=== PATIENT | female | born 1955 | race Caucasian/White ===

== ENCOUNTER 2020-01-02 08:42 | Outpatient (CLI) | payer BC, SELFPAY ==
[2020-01-02 09:12] LABS: Add Urine Microscopic? YES; Appearance Urine Clear (Clear); Bilirubin Urine Negative (Negative); Blood Urine Negative (Negative); Color Urine Yellow (Yellow); Glucose Urine UA Negative (Negative); Ketones Urine Negative (Negative); Leukocyte Esterase Ur Trace (Negative); Nitrate Urine Negative (Negative); Protein Urine Negative (Negative); Urobilinogen Urine 0.2 mg/dL (0.2-1.0); pH Urine 6.5 (5.0-8.0)
[2020-01-02 09:17] LABS: RBC Urine 0-2 /hpf (0-2); Squamous Epithelial Cell Urine Few /hpf (Few)
[2020-01-02 09:18] LABS: Bacteria Urine 1+ /hpf; Mucus Urine Few /lpf
[2020-01-02 09:22] LABS: Hemoglobin A1C 6.4 % (<5.7)
[2020-01-02 10:07] LABS: Alanine Aminotransferase 29 U/L (14-59); Albumin Level 4.1 g/dL (3.4-5.0); Alkaline Phosphatase 60 U/L (46-116); Anion Gap 14.8 mmol/L (7-16); Aspartate Amino Transferase 19 U/L (15-37); Bilirubin,Total 0.5 mg/dL (0.00-1.00); Blood Urea Nitrogen 18 mg/dL (7-18); Carbon Dioxide 27 mmol/L (21-32); Chloride 104 mmol/L (98-108); Cholesterol 147 mg/dL (0-200); Creatine Kinase 76 U/L (26-192); Estimated Glomerular Filt Rate > 60; Glucose 94 mg/dL (70-99); HDL Direct 61 mg/dL (40-60); LDL Cholesterol Calculated 60 mg/dL (<130); Osmolality Calculated 293 mOsm/kg (285-295); Potassium 4.8 mmol/L (3.5-5.1); Sodium 141 mmol/L (136-145); Total Protein 6.9 g/dL (6.4-8.2); Triglycerides 130 mg/dL (0-150)
[2020-01-04 10:52] LABS: Vitamin D 25 Hydroxy 40 ng/mL (30-100)
== END 2020-01-02 08:43 | disposition home or self-care (01) ==
LOC: CHSLAB 08:44
PROVIDERS: PCP Internal Medicine; Visit Provider Internal Medicine
DX: R73.01 Impaired fasting glucose (principal); E78.2 Mixed hyperlipidemia; I10 Essential (primary) hypertension; M81.0 Age-related osteoporosis without current pathological fracture
CPT/HCPCS: 36415; 80053; 80061; 81001; 82306; 82550; 83036

== ENCOUNTER 2020-05-18 09:59 | Emergency (ER) | payer BC, SELFPAY ==
--- NOTE | ~2020-05-18 | CT_ITS ---
EXAMINATION: CT brain wo con DATE: 05/18/2020 11:09 INDICATION: Dizziness with history of carotid artery stenosis. TECHNIQUE: Computed tomography (CT) of the head was performed without intravenous contrast. Sagittal and coronal reconstructions were performed. The mA was adjusted according to patient size. Iterative reconstruction technique was employed. The dose-length product was 605.33 mGy-cm. COMPARISON: None FINDINGS: No acute intracranial hemorrhage, acute infarction or abnormal extra axial fluid collection. There is mild scattered white matter hypoattenuation consistent with chronic small vessel ischemic disease. Ventricles are normal and symmetric. No mass/mass effect. The orbits, paranasal sinuses and mastoid a ir cells are normal. IMPRESSION: 1. No acute intracranial process. Reviewed, dictated and finalized at location A.
[2020-05-18 10:00] VITALS: BP 186/78; PULSE 55; RESP 18; TEMP 36.7; O2SAT 96
--- NOTE | 2020-05-18 10:39 | ECG_ITS ---
Measurements Intervals [place] Rate: 56 P: 45 TN: 228 QRS: 9 QRSD: 104 T: 40 QT: 412 QTc: 400 Interpretive Statements SINUS BRADYCARDIA WITH FIRST DEGREE AV BLOCK DELAYED PRECORDIAL R/S TRANSITION BASELINE ARTIFACT- I, II, AVR, AVL, AVF ABNORMAL ECG Electronically Signed On 05-18-2020 11:13:25 CDT by Adryan Pritchett D.O.
--- NOTE | 2020-05-18 10:39 | ED.DIZZY ---
HPI - Dizziness General Chief Complaint: Dizziness Stated Complaint: dizzy spells Time Seen by Provider: 05/18/20 10:23 Source: patient History of Present Illness HPI Narrative: 65-year-old female patient arrives to the ER ambulatory with chief complaints of experiencing dizziness since last night. The patient states that she was doing her dishes and suddenly started feeling dizzy where she felt that the room was spinning around her. She states that she had to sit down to feel better. She did get nauseated but did not have any emesis. She did experience some popping of the ears off and on. She denies any associated diaphoresis, headache, chest pain, shortness of breath or feeling of passing out. The patient states that she has been on a diet recently where she is eating sensible and has realized that she does not drink enough fluids. She did have 1 beer last night and was not able to finish it. The patient states that she slept reasonably well but this morning felt unsteady on her feet again with similar symptoms of dizziness that she experienced last night. Again there are no other associated symptoms this morning except for the fact that patient is not feeling steady on her feet. Patient denies ever having experienced similar symptoms. She denies any associated visual or auditory problems. Patient states that she has had a history of hypertension and did have a mild heart attack in the past but denies having had any stents placed in our any known history of coronary artery stenosis. She does admit to having carotid artery stenosis which she was told is at 50%. She has no prior history of stroke symptoms. She denies any diabetes. She denies being a smoker for the last 7 years. Related Data Home Medications Medication Instructions Recorded Confirmed [employer] wort 300 mg capsule 300 mg PO DAILY 01/12/20 05/18/20 ascorbic acid (vitamin C) 500 mg 500 mg PO BID 01/12/20 05/18/20 tablet aspirin 81 mg tablet,delayed 81 mg PO DAILY 01/12/20 05/18/20 release calcium carb-Ca gluc 500 mg 500 tablet PO DAILY 01/12/20 05/18/20 calcium-magnesium ox-Mg gluc 250 mg tablet carvedilol 6.25 mg tablet 6.25 mg PO Q12H 01/12/20 05/18/20 cholecalciferol (vitamin D3) 100 5,000 unit PO DAILY tablet 01/12/20 05/18/20 mcg (4,000 unit) tablet cyanocobalamin (vitamin B-12) 500 500 mcg PO DAILY 01/12/20 05/18/20 mcg tablet magnesium oxide 400 mg PO BID 01/12/20 05/18/20 multivitamin 1 tablet PO DAILY 01/12/20 05/18/20 pravastatin 10 mg tablet 10 mg PO DAILY 01/12/20 05/18/20 Allergies Allergy/AdvReac Type Severity Reaction Status Date / Time No Known Allergies Allergy Verified 01/16/20 14:59 Review of Systems Review of Systems: All systems reviewed & are unremarkable except as noted in HPI and below Constitutional: Constitutional: Reports as per HPI and Reports fatigue Eyes: Eyes: Reports no additional eye complaints ENT: Reports system reviewed and no additional complaints, except as documented Cardiovascular: Cardiovascular: Reports as per HPI, Reports no additional cardiovascular complaints, Denies chest pain, Denies rapid heart rate, Denies radiating jaw, neck or arm pain and Denies slow heart rate Respiratory: Respiratory: Reports no additional respiratory complaints, Denies chest congestion, Denies cough, Denies dyspnea and Denies wheezing Gastrointestinal: Gastrointestinal: Denies no additional gastrointestinal complaints, Denies abdominal pain, Denies diarrhea, Reports nausea and Denies vomiting Genitourinary: Genitourinary: Reports no additional female genitourinary complaints Musculoskeletal: Musculoskeletal: Reports no additional musculoskeletal complaints Integumentary/Breasts: Skin/Breast: Reports system reviewed and no additional complaints, except as docu Endocrine: Endocrine: Reports no additional endocrine complaints Hematologic/Lymphatic: Hematologic/Lymphatic: Reports no additional hematologic/lymp
[2020-05-18 10:48] VITALS: BP 134/57; PULSE 61
[2020-05-18 10:50] VITALS: BP 147/73; PULSE 65
--- NOTE | 2020-05-18 11:00 | PC.NURSE ---
report to shanon Tidwell
[2020-05-18 11:02] LABS: Basophils Absolute Auto 0.02 K/mm3 (0.00-0.10); Basophils Percent Auto 0.4 % (0.0-1.0); Eosinophils Absolute Auto 0.15 K/mm3 (0.02-0.50); Eosinophils Percent Auto 2.8 % (1.0-6.0); Hematocrit 41.8 % (35.0-49.0); Hemoglobin 13.6 g/dL (12.0-15.0); Immature Granulocyte Absolute 0.01 K/mm3 (0.00-0.00); Immature Granulocyte Percent A 0.2 % (0.0-0.0); Lymphocytes Absolute Auto 1.55 K/mm3 (1.10-4.50); Lymphocytes Percent Auto 29.4 % (18.0-42.0); Mean Corpuscular HGB Conc 32.5 g/dL (32.0-36.0); Mean Corpuscular Hemoglobin 29.8 pg (27.0-31.0); Mean Corpuscular Volume 91.7 fL (78.0-102.0); Mean Platelet Volume 11.7 fl (9.2-11.8); Monocytes Absolute Auto 0.65 K/mm3 (0.10-0.90); Monocytes Percent Auto 12.3 % (2.0-11.0); Neutrophils Absolute Auto 2.9 K/mm3 (1.7-7.2); Neutrophils Percent Auto 54.9 % (50.0-70.0); Platelet Count Result 164 K/mm3 (150-420); Red Blood Count 4.56 M/mm3 (4.20-5.40); Red Cell Distribution Width 13.2 % (11.6-14.4); White Blood Count 5.3 K/mm3 (4.8-10.8)
[2020-05-18 11:04] LABS: Appearance Urine Clear (Clear); Bilirubin Urine Negative (Negative); Color Urine Yellow (Yellow); Glucose Urine UA Negative (Negative); Ketones Urine Negative (Negative); Leukocyte Esterase Ur Negative (Negative); Nitrate Urine Negative (Negative); Protein Urine Negative (Negative); Specific Grav Ur <= 1.005 (1.010-1.020); Urobilinogen Urine 0.2 mg/dL (0.2-1.0)
[2020-05-18 11:11] LABS: Add Urine Microscopic? YES; Bacteria Urine None seen /hpf; Blood Urine Trace-Intact (Negative)
[2020-05-18 11:12] LABS: RBC Urine 0-2 /hpf (0-2); Squamous Epithelial Cell Urine None seen /hpf (Few); WBC Urine 0-3 /hpf (0-3)
[2020-05-18 11:26] LABS: Blood Urea Nitrogen 20 mg/dL (7-18); Calcium 9.3 mg/dL (8.5-10.1); Carbon Dioxide 30 mmol/L (21-32); Creatine Kinase 98 U/L (26-192); Estimated Glomerular Filt Rate > 60; Glucose 84 mg/dL (70-99); Magnesium 1.8 mg/dL (1.8-2.4)
[2020-05-18 11:36] LABS: Troponin I < 0.02 ng/mL (0.00-0.056)
[2020-05-18 12:07] LABS: Anion Gap 11.5 mmol/L (7-16); Chloride 101 mmol/L (98-108); Osmolality Calculated 287 mOsm/kg (285-295); Potassium 4.5 mmol/L (3.5-5.1); Sodium 138 mmol/L (136-145)
[2020-05-18] MEDS: SODIUM CHLORIDE 0.9% IV 1,000 ML 999 ML IV CONT (12:14)
[2020-05-18 13:28] VITALS: BP 155/49; PULSE 61; RESP 20; O2SAT 99
== END 2020-05-18 13:28 | disposition home or self-care (01) ==
PROVIDERS: Emergency Provider Emergency Medicine; PCP Internal Medicine
DX: R42 Dizziness and giddiness (principal); I10 Essential (primary) hypertension; E86.0 Dehydration
CPT/HCPCS: 36415; 70450; 80048; 81001; 82550; 82553; 83735; 84484; 85025; 93005; 99283; 99284; 99285; J7030

== ENCOUNTER 2020-05-19 04:57 | Emergency (ER) | payer BC, SELFPAY ==
[2020-05-19 05:00] VITALS: BP 180/92; PULSE 72; RESP 16; TEMP 36.2; O2SAT 98
[2020-05-19] MEDS: cloNIDine HCL 0.1 MG TABLET PO (05:28)
--- NOTE | 2020-05-19 05:35 | ED.DIZZY ---
HPI - Dizziness General Chief Complaint: Dizziness Stated Complaint: dizzy Time Seen by Provider: 05/19/20 05:35 History of Present Illness HPI Narrative: 65-year-old female patient is returning again with dizziness padded this patient was seen yesterday with same complaints of dizziness that seemed to get worse when she stood up or try to ambulate. The patient had will unremarkable physical exam. A complete workup was done including electrocardiogram and the CT scan of the brain. The patient did have full the lab work done as well. All the parameters were within normal limits. The patient was given a L of fluids intravenously in the ER and she felt better and was discharged. The patient states that she felt fine during the day and was the evening got little bit more dizzy. She states that this morning when she got up to get ready to go to her work she felt so unsteady on her feet and again had another episode of dizziness. The patient describes the dizziness as the room spinning. She states that she is unable to look down which exaggerates the dizziness. She has mild nausea but no associated vomiting. She denies breaking out in a cold sweat. She denies any current headache. She denies any trouble with her speech. The patient states that if she holds onto things she is able to walk but feels a little unsteady. The patient denies any visual problems. Related Data Home Medications Medication Instructions Recorded Confirmed [employer]'s wort 300 mg capsule 300 mg PO DAILY 01/12/20 05/19/20 ascorbic acid (vitamin C) 500 mg 500 mg PO BID 01/12/20 05/19/20 tablet aspirin 81 mg tablet,delayed 81 mg PO DAILY 01/12/20 05/19/20 release calcium carb-Ca gluc 500 mg 500 tablet PO DAILY 01/12/20 05/19/20 calcium-magnesium ox-Mg gluc 250 mg tablet carvedilol 6.25 mg tablet 6.25 mg PO Q12H 01/12/20 05/19/20 cholecalciferol (vitamin D3) 100 5,000 unit PO DAILY tablet 01/12/20 05/19/20 mcg (4,000 unit) tablet cyanocobalamin (vitamin B-12) 500 500 mcg PO DAILY 01/12/20 05/19/20 mcg tablet magnesium oxide 400 mg PO BID 01/12/20 05/19/20 multivitamin 1 tablet PO DAILY 01/12/20 05/19/20 pravastatin 10 mg tablet 10 mg PO DAILY 01/12/20 05/19/20 Allergies Allergy/AdvReac Type Severity Reaction Status Date / Time No Known Allergies Allergy Verified 01/16/20 14:59 Review of Systems Review of Systems: All systems reviewed & are unremarkable except as noted in HPI and below Constitutional: Constitutional: Reports as per HPI, Reports no additional constitutional complaints, Denies chills, Denies fatigue, Denies fever(s) and Denies weakness Eyes: Eyes: Reports no additional eye complaints ENT: Reports as per HPI, Reports vertigo, Reports dizziness and Denies nasal congestion Cardiovascular: Cardiovascular: Denies chest pain and Denies rapid heart rate Respiratory: Respiratory: Denies chest congestion, Denies cough, Denies dyspnea and Denies wheezing Gastrointestinal: Gastrointestinal: Denies abdominal pain, Denies diarrhea, Reports nausea and Denies vomiting Genitourinary: Genitourinary: Denies urinary incontinence Musculoskeletal: Musculoskeletal: Denies back pain and Denies muscle cramps Integumentary/Breasts: Skin/Breast: Reports system reviewed and no additional complaints, except as docu Neurologic: Reports system reviewed and no additional complaints, except as documented, Reports as per HPI, Denies confusion, Reports vertigo, Reports dizziness, Denies syncope, Denies headache(s), Denies focal weakness, Denies numbness and Denies weakness Psychiatric: Psychiatric: Denies anxiety and Denies depression Endocrine: Endocrine: Reports no additional endocrine complaints Hematologic/Lymphatic: Hematologic/Lymphatic: Reports no additional hematologic/lymphatic complaints [facility] Social History Social History Smoking status: Former smoker Gender identity (if verbalized b
[2020-05-19 05:50] LABS: Anion Gap 10.1 mmol/L (7-16); Blood Urea Nitrogen 18 mg/dL (7-18); Calcium 8.9 mg/dL (8.5-10.1); Carbon Dioxide 29 mmol/L (21-32); Chloride 104 mmol/L (98-108); Estimated CRCL calculation 77 ml/min; Estimated Glomerular Filt Rate > 60; Glucose 112 mg/dL (70-99); Osmolality Calculated 290 mOsm/kg (285-295); Potassium 4.1 mmol/L (3.5-5.1); Sodium 139 mmol/L (136-145)
[2020-05-19] MEDS: MECLIZINE HCL 25 MG TABLET PO (05:50)
[2020-05-19 06:07] VITALS: BP 140/73; PULSE 70; RESP 18; O2SAT 98
[2020-05-19 06:24] VITALS: BP 140/70; PULSE 80; RESP 18; TEMP 36.6; O2SAT 96
== END 2020-05-19 06:33 | disposition home or self-care (01) ==
PROVIDERS: Emergency Provider Emergency Medicine; PCP Internal Medicine
DX: R42 Dizziness and giddiness (principal)
CPT/HCPCS: 36415; 80048; 99283; A9270

== ENCOUNTER 2020-05-21 16:02 | Outpatient (RCR) | payer BC, SELFPAY ==
--- NOTE | 2020-05-23 08:33 | PTOPEVAL ---
Thank you for referring Ayse Lowe to [facility]. Please review, sign, date and return this plan of care TERESA. I agree with and certify that the following plan of care is medically necessary. Referring Physician Date Admitting Provider: Attending Provider: Amol Carter MD Referring Provider: *PT Outpatient Evaluation Start: 05/23/20 06:55 Freq: Status: Active Protocol: Document 05/21/20 16:35 PETRA (Rec: 05/23/20 08:16 PETRA [id number]) Therapy Assessment Status Assessment Status Assessment Status Evaluation Outpatient Past Medical History Neurological History Hx Other Neurological Disorders Yes: takes st carreon wort to improve memory Cardiovascular History Hx Chest Pain Yes Hx Hypercholesterolemia Yes Hx Hypertension Yes Hx Myocardial Infarction Yes Musculoskeletal History Hx Other Musculoskeletal Disorders Yes: knee pain Reproductive History Hx Post Menopausal Yes Hx Tubal Ligation Yes Psychosocial History Hx Anxiety Yes Hx Other Psychiatric Disorders Yes: high stress at work Pain History History of Any Previous or Ongoing No Significant History Instance of Pain Anesthesia History Hx Anesthesia Reactions No Significant History Evaluation Information Problem Diagnosis vertigo Onset 05/18/20 Subjective Information Pt. reports that she began to Query Text:As Reported By Patient/ note dizziness last . Family She reports that mostly noted with quick turns of her head. She does not recall a particular side and states that most symptoms are in standing. she states that her symptoms have gotten no worse or no better. She states that her goal is to reduce her dizziness. Prior Level of Function Activity Level (Last 3 Months) Occupation retired Hand Dominance Right Activity of Daily Living Ability Independent Indoor/Home Mobility Independent Community Mobility Independent Stairs Ability Independent Functional Cognition (Planning, Shopping Independent , Taking Medications) Cooking Yes Cleaning Yes Laundry Yes Shopping Yes Driving No Pain Assessment Self Report Self Report Pain Level 0 Pain Score
== END 2020-05-30 17:09 | disposition home or self-care (01) ==
LOC: CHSPT 16:02
PROVIDERS: PCP Internal Medicine; Visit Provider Internal Medicine
DX: R42 Dizziness and giddiness (principal)
CPT/HCPCS: 97112; 97161

== ENCOUNTER 2020-07-04 07:45 | Outpatient (CLI) | payer BC, SELFPAY ==
[2020-07-04 07:57] LABS: Add Urine Microscopic? NO; Appearance Urine Clear (Clear); Bilirubin Urine Negative (Negative); Blood Urine Negative (Negative); Color Urine Yellow (Yellow); Glucose Urine UA Negative (Negative); Ketones Urine Negative (Negative); Leukocyte Esterase Ur Negative (Negative); Nitrate Urine Negative (Negative); Protein Urine Negative (Negative); Urobilinogen Urine 0.2 mg/dL (0.2-1.0)
[2020-07-04 08:28] LABS: Hemoglobin A1C 5.7 % (<5.7)
[2020-07-04 09:55] LABS: Alanine Aminotransferase 29 U/L (14-59); Albumin Level 4.3 g/dL (3.4-5.0); Alkaline Phosphatase 79 U/L (46-116); Anion Gap 7 mmol/L (8-16); Aspartate Amino Transferase 15 U/L (15-37); Bilirubin,Total 0.5 mg/dL (0.00-1.00); Blood Urea Nitrogen 19 mg/dL (7-18); Calcium 9.3 mg/dL (8.5-10.1); Carbon Dioxide 29 mmol/L (21-32); Chloride 102 mmol/L (98-108); Cholesterol 179 mg/dL (0-200); Creatine Kinase 82 U/L (26-192); Estimated Glomerular Filt Rate > 60; Glucose 102 mg/dL (70-99); HDL Direct 70 mg/dL (40-60); LDL Cholesterol Calculated 82 mg/dL (<130); Osmolality Calculated 288 mOsm/kg (285-295); Sodium 138 mmol/L (136-145); Total Protein 7.2 g/dL (6.4-8.2); Triglycerides 137 mg/dL (0-150)
== END 2020-07-04 07:46 | disposition home or self-care (01) ==
PROVIDERS: PCP Internal Medicine; Visit Provider Internal Medicine
DX: E78.2 Mixed hyperlipidemia (principal); I10 Essential (primary) hypertension; R73.01 Impaired fasting glucose
CPT/HCPCS: 36415; 80053; 80061; 81003; 82550; 83036

== ENCOUNTER 2020-07-16 08:23 | Outpatient (CLI) | payer BC, SELFPAY ==
--- NOTE | ~2020-07-16 | MM_ITS ---
EXAMINATION: MM screening cheng BI w marc HISTORY: Screening mammogram TECHNIQUE: Craniocaudal and mediolateral oblique 3-D tomosynthesis images were obtained and synthetic 2-D images were generated. CAD analysis was submitted and interpreted. COMPARISON: 07/14/2019, 09/19/2017 bilateral digital screening mammogram examinations . 10/06/2017 diagnostic right mammogram BREAST PARENCHYMAL COMPOSITION: There are scattered areas of fibroglandular density. FINDINGS: There is no evidence of suspicious mass, calcification, or architectural distortion to sugg est malignancy in either breast. There has been no suspicious interval change. IMPRESSION: 1. No mammographic evidence of malignancy. 2. Recommend routine screening mammography in one year. BI-RADS Category 1: Negative Reviewed, dictated and finalized at location A.
== END 2020-07-16 08:24 | disposition home or self-care (01) ==
LOC: CHSIMG 08:23
PROVIDERS: PCP Internal Medicine; Visit Provider Internal Medicine
DX: Z12.31 Encounter for screening mammogram for malignant neoplasm of breast (principal)
CPT/HCPCS: 77063; 77067

== ENCOUNTER 2021-02-19 09:22 | Outpatient (CLI) | payer BC, SELFPAY ==
--- NOTE | ~2021-02-19 | XR_ITS ---
XR_CERV2-3V_CR DATE: 02/19/2021 09:54 INDICATION: Chronic right neck pain, limited range of motion TECHNIQUE: AP, open-mouth, lateral views COMPARISON: None FINDINGS: There is diffuse osteopenia. C1 and C2 are normally aligned and the odontoid process is intact. There is 3 mm anterolisthesis at C3-4 and C4-5. Moderately severe degenerative disc disease at C5-6 and C6-7. Prominent uncovertebral joint spurring is noted C5-6 and C6-7. There is degenerative change throughou t the apophyseal joints. IMPRESSION: 3 mm anterolisthesis at C3-4 and C4-5 Moderately severe degenerative disease and uncovertebral joint spurring at C5-6 and C6-7 Apophyseal joint spurring throughout the cervical spine Reviewed, dictated and finalized at Location A. Reviewed, dictated and finalized at location A.
== END 2021-02-19 09:23 | disposition home or self-care (01) ==
LOC: CHSIMG 09:24
PROVIDERS: PCP Internal Medicine; Visit Provider Internal Medicine
DX: M54.2 Cervicalgia (principal)
CPT/HCPCS: 72040

== ENCOUNTER 2021-02-27 07:45 | Outpatient (CLI) | payer BC, SELFPAY ==
--- NOTE | ~2021-02-27 | MR_ITS ---
EXAMINATION: MR cervical spine wo con EXAM DATE: 02/27/2021 09:08 INDICATION: Neck pain RT neck into shoulder pain and up to back of head x2yrs. TECHNIQUE: Multi-sequential, multiplanar MR images of the cervical spine were obtained without contra st. Axial T2, axial T2 MERGE sequence. Sagittal T1, T2, T2 fat saturation images also obtained. Th ere is no prior study for comparison. FINDINGS: There is 2-3 mm anterolisthesis C2 on C3, C3 on C4, C4 on C5, C7 on T1, T2 on T3 and T3 on T4. There is mild reversal of the normal cervical lordosis which may be degenerative, positional or spasm. Moderate loss of the disc height at C5-6 and C6-7. The spinal cord signal intensity and intri nsic morphology is normal. Cervicomedullary junction is normal in appearance. There are no suspicious marrow signal abnormalities. Paraspinal soft tissue is unremarkable. Level by level evaluation: Axial images are limited due to patient motion. C2-C3: There is a mild diffuse disc bulge. Uncovertebral joint arthropathy: None. Facet joint arthropathy: None. Neural foraminal stenosis: No stenosis. Central canal stenosis: No stenosis. C3-C4: There is a mild diffuse disc bulge. Uncovertebral joint arthropathy: Probably mild left. Facet joint arthropathy: Mild bilateral. Neural foraminal stenosis: Mild left. Central canal stenosis: No stenosis. C4-C5: There is a mild diffuse disc bulge. Uncovertebral joint arthropathy: Possibly mild. Facet joint arthropathy: Possibly mild. Neural foraminal stenosis: No stenosis. Central canal stenosis: No stenosis. C5-C6: There is a mild diffuse disc bulge. Uncovertebral joint arthropathy: Probably mild to moderate bilateral. Facet joint arthropathy: Probably mild bilateral. Neural foraminal stenosis: Minimal left. Central canal stenosis: Mild. C6-C7: There is a mild diffuse disc bulge. Uncovertebral joint arthropathy: Probably mild to moderate left, mild right. Facet joint arthropathy: Probably mild bilateral. Neural foraminal stenosis: Mild left. Central canal stenosis: Mild. C7-T1: Disc does not extend beyond the endplate margin. Uncovertebral joint arthropathy: Probably mild left. Facet joint arthropathy: Mild to moderate left, mild right. Neural foraminal stenosis: Mild left. Central canal stenosis: No stenosis. IMPRESSION: 1. Multiple cervical thoracic subluxations. 2. Moderate disc disease C5-C7. 3. Mild to moderate arthropathy. Reviewed, dictated and finalized at location A.
== END 2021-02-27 07:46 | disposition home or self-care (01) ==
LOC: CHSIMG 07:48
PROVIDERS: PCP Internal Medicine; Visit Provider Internal Medicine
DX: M54.2 Cervicalgia (principal)
CPT/HCPCS: 72141

== ENCOUNTER 2021-03-07 12:12 | Outpatient (CLI) | payer MEDICARE, SELFPAY ==
--- NOTE | ~2021-03-07 | US_ITS ---
EXAMINATION: US pelvic complete w TV EXAM DATE: 03/07/2021 13:29 INDICATION: Abnormal Pap Smear/Inflammatory Disease Of The Cervix. TECHNIQUE: Pelvic transabdominal and transvaginal sonogram was performed. There are multiple graysca le and Doppler images available for interpretation. There is no prior study for comparison. FINDINGS: Uterus measures 7.5 x 2.2 x 3.8 cm. It is anteverted. Difficult to confidently delineate t he endometrium but a measurement of 6-7 mm was suspected. This is upper limits of normal. There is fl uid in the cervical canal. Right adnexa: The ovary is not identified. There is no adnexal mass. Left adnexa: The ovary is not identified. There is no adnexal mass. IMPRESSION: Cervical canal fluid. Suboptimally visualized endometrium but measurement obtained is upp er limits of normal for postmenopausal status. Reviewed, dictated and finalized at location B. IMPRESSION: Cervical canal fluid. Suboptimally visualized endometrium but measu rement obtained is upper limits of normal for postmenopausal status.
== END 2021-03-07 12:13 | disposition home or self-care (01) ==
LOC: CHSIMG 12:19
PROVIDERS: PCP Internal Medicine; Visit Provider Nurse Practitioner Family
DX: R87.619 Unspecified abnormal cytological findings in specimens from cervix uteri (principal)
CPT/HCPCS: 76830; 76856

== ENCOUNTER 2021-06-18 07:52 | Outpatient (RCR) | payer MEDICARE, SELFPAY ==
--- NOTE | 2021-06-18 09:18 | PTOPEVAL ---
Thank you for referring Ayse Lowe to [facility].? The patient is scheduled to be seen for therapy? ____x/week for ___ weeks. Please review, sign, date and return this plan of care TERESA. I agree with and certify that the following plan of care is medically necessary. Referring Physician Date Admitting Provider: Attending Provider: Clme Ardon, Referring Provider: *PT Outpatient Evaluation Start: 06/18/21 07:50 Freq: Status: Active Protocol: Document 06/18/21 07:51 ACR (Rec: 06/18/21 09:17 [id number]) Therapy Assessment Status Assessment Status Assessment Status Evaluation Outpatient Past Medical History Neurological History Hx Other Neurological Disorders Yes: takes st carreon wort to improve memory Cardiovascular History Hx Chest Pain Yes Hx Hypercholesterolemia Yes Hx Hypertension Yes Hx Myocardial Infarction Yes Musculoskeletal History Hx Other Musculoskeletal Disorders Yes: knee pain Reproductive History Hx Post Menopausal Yes Hx Tubal Ligation Yes Psychosocial History Hx Anxiety Yes Hx Other Psychiatric Disorders Yes: high stress at work Pain History History of Any Previous or Ongoing No Significant History Instance of Pain Anesthesia History Hx Anesthesia Reactions No Significant History Evaluation Information Problem Diagnosis neck pain and R shoulder pain Subjective Information Patient states that in 2018 Query Text:As Reported By Patient/ around june she started to Family have some neck pain and got x- rays which were negative. The patient states that she started to have vertigo and neck tightness that is causing her extreme pain. She states that sometimes her neck is so tight she sometimes has to move her neck with her hands. Patient states that she is unable to look side to side, looking up and down, lifting her arms overhead, and the pain is waking her up at night . Patient states that she has some tingling down her R arm occasionally. Patient states that when she gets out of bed she occasionally feels unbalanced and that she feels she is inside another bod
== END 2021-07-15 17:29 | disposition home or self-care (01) ==
LOC: CHSPT 07:52
PROVIDERS: Visit Provider Neurological Surgery
DX: M47.812 Spondylosis without myelopathy or radiculopathy, cervical region (principal); M75.101 Unspecified rotator cuff tear or rupture of right shoulder, not specified as traumatic; M12.811 Other specific arthropathies, not elsewhere classified, right shoulder
CPT/HCPCS: 97014; 97110; 97140; 97161; G0283

== ENCOUNTER 2021-07-17 09:10 | Outpatient (CLI) | payer MEDICARE, SELFPAY ==
--- NOTE | ~2021-07-17 | MM_ITS ---
EXAMINATION: MM screening cheng BI w marc HISTORY: Screening TECHNIQUE: Craniocaudal and mediolateral oblique 3-D tomosynthesis images were obtained and synthetic 2-D images were generated. CAD analysis was submitted and interpreted. COMPARISON: Comparison to multiple prior studies sequentially, with oldest reviewed study dated 12/29. BREAST PARENCHYMAL COMPOSITION: There are scattered areas of fibroglandular density. FINDINGS: There is no evidence of suspicious mass, calcification, or architectural distortion to sugg est malignancy in either breast. There has been no suspicious interval change. IMPRESSION: 1. No mammographic evidence of malignancy. 2. Recommend routine screening mammography in one year. BI-RADS Category 1: Negative Reviewed, dictated and finalized at location A.
== END 2021-07-17 09:11 | disposition home or self-care (01) ==
LOC: CHSIMG 09:12
PROVIDERS: PCP Internal Medicine; Visit Provider Internal Medicine
DX: Z12.31 Encounter for screening mammogram for malignant neoplasm of breast (principal)
CPT/HCPCS: 77063; 77067

== ENCOUNTER 2021-07-18 11:00 | Outpatient (RCR) | payer MEDICARE, SELFPAY ==
--- NOTE | 2021-07-18 13:01 | PTOPEVAL ---
Thank you for referring Ayse Lowe to [facility].? The patient is scheduled to be seen for therapy? ____x/week for ___ weeks. Please review, sign, date and return this plan of care TERESA. I agree with and certify that the following plan of care is medically necessary. Referring Physician Date Admitting Provider: Attending Provider: Livier Parmar, INSPECTION ENGINEER Referring Provider: *PT Outpatient Evaluation Start: 07/18/21 11:03 Freq: Status: Active Protocol: Document 07/18/21 11:03 ACR (Rec: 07/18/21 11:48 [id number]) Therapy Assessment Status Assessment Status Assessment Status Evaluation Outpatient Past Medical History Neurological History Hx Other Neurological Disorders Yes: takes st carreon wort to improve memory Cardiovascular History Hx Chest Pain Yes Hx Hypercholesterolemia Yes Hx Hypertension Yes Hx Myocardial Infarction Yes Musculoskeletal History Hx Other Musculoskeletal Disorders Yes: knee pain Reproductive History Hx Post Menopausal Yes Hx Tubal Ligation Yes Psychosocial History Hx Anxiety Yes Hx Other Psychiatric Disorders Yes: high stress at work Pain History History of Any Previous or Ongoing No Significant History Instance of Pain Anesthesia History Hx Anesthesia Reactions No Significant History Evaluation Information Problem Diagnosis R shoulder pain Onset 07/03/21 Subjective Information Patient reports that she fell Query Text:As Reported By Patient/ on her shoulder 10 years ago Family and it has been bothering her ever since. She states that it continues to bother her at work with all of the lifting she does. She states that she was just at the orthopedic this morning and is getting an MRI scheduled soon. The patient states that carrying a grocery bag, prolonged sewing , and vaccuming are all difficulty. Patient states the surgeon told her that surgery is most likely in her future due to her significant weakness. 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
== END 2021-07-31 10:16 | disposition home or self-care (01) ==
LOC: CHSPT 11:00
PROVIDERS: Visit Provider Nurse Practitioner Family
DX: M75.101 Unspecified rotator cuff tear or rupture of right shoulder, not specified as traumatic (principal); M12.811 Other specific arthropathies, not elsewhere classified, right shoulder
CPT/HCPCS: 97014; 97110; 97161; G0283

== ENCOUNTER 2021-08-02 09:19 | Outpatient (CLI) | payer MEDICARE, SELFPAY ==
[2021-08-02 09:48] LABS: Add Urine Microscopic? YES; Appearance Urine Clear (Clear); Bilirubin Urine Negative (Negative); Blood Urine Negative (Negative); Color Urine Light Yellow (Yellow); Glucose Urine UA Negative (Negative); Ketones Urine Negative (Negative); Leukocyte Esterase Ur Trace (Negative); Nitrate Urine Negative (Negative); Protein Urine Negative (Negative); Urobilinogen Urine 0.2 mg/dL (0.2-1.0)
[2021-08-02 09:54] LABS: RBC Urine None seen /hpf (0-2); Squamous Epithelial Cell Urine Few /hpf (Few); WBC Urine 0-3 /hpf (0-3)
[2021-08-02 09:55] LABS: Bacteria Urine Trace /hpf; Mucus Urine Few /lpf
[2021-08-02 10:18] LABS: Alanine Aminotransferase 29 U/L (14-59); Alkaline Phosphatase 76 U/L (46-116); Anion Gap 8 mmol/L (8-16); Aspartate Amino Transferase 15 U/L (15-37); Bilirubin,Total 0.6 mg/dL (0.00-1.00); Blood Urea Nitrogen 21 mg/dL (7-18); Carbon Dioxide 29 mmol/L (21-32); Chloride 103 mmol/L (98-108); Cholesterol 207 mg/dL (0-200); Creatine Kinase 86 U/L (26-192); Estimated Glomerular Filt Rate > 60; Glucose 98 mg/dL (70-99); HDL Direct 85 mg/dL (40-60); LDL Cholesterol Calculated 108 mg/dL (<130); Osmolality Calculated 293 mOsm/kg (285-295); Potassium 4.8 mmol/L (3.5-5.1); Sodium 140 mmol/L (136-145); Total Protein 6.8 g/dL (6.4-8.2); Triglycerides 71 mg/dL (0-150)
[2021-08-02 10:23] LABS: Calcium 9.4 mg/dL (8.5-10.1)
[2021-08-06 13:12] LABS: Vitamin D 25 Hydroxy 37 ng/mL (30-100)
== END 2021-08-02 09:20 | disposition home or self-care (01) ==
PROVIDERS: PCP Internal Medicine; Visit Provider Internal Medicine
DX: R73.01 Impaired fasting glucose (principal); M81.0 Age-related osteoporosis without current pathological fracture; E78.2 Mixed hyperlipidemia; I10 Essential (primary) hypertension
CPT/HCPCS: 36415; 80053; 80061; 81001; 82306; 82550; 83036

== ENCOUNTER 2021-08-12 07:29 | Outpatient (CLI) | payer MEDICARE, SELFPAY ==
--- NOTE | 2021-08-12 07:32 | EST_ITS ---
Patient Info Name: Ayse Lowe Age: 66 years : 1955 Gender: Female Ht: 61 in Wt: 213 lbs BSA: 2.09 m2 HR: 55 bpm BP: 153 / 72 mmHg Heart Rhythm: Bradycardia Technical Quality: Excellent Exam Date: 08/12/2021 8:46 AM Exam Location: [facility] Patient Status: Outpatient Admit Date: 08/12/2021 Staff Ordering Physician: Adryan Pritchett DO Attending Provider: Adryan Pritchett DO Exercise Technologist: Elizabeth Reid CRT Exercise Physician: Serenity Rosado CEP Exam Type: CA stress cindy w NM Study Info Indications PreOp - TYLER - A nuclear stress test was performed. History/Risk Factors Hypertension: Yes History/Risk Factors HTN. Summary 1. 1. Negative lexiscan stress test for ischemic ST changes by ECG criteria. 2. 2. Baseline hypertension. 3. 3. Nuclear scan to follow and will be reported separately. Please correlate with it. Protocol: LEXISCAN Stress ECG Details Stage: REST Duration (min): 1 min : 36 sec HR (bpm): 55 SBP (mmHg): 153 DBP (mmHg): 72 Stage: REST Duration (min): 13 min : 39 sec HR (bpm): 52 SBP (mmHg): 153 DBP (mmHg): 72 Stage: STAGE 1 Duration (min): 0 min : 7 sec HR (bpm): 50 SBP (mmHg): 153 DBP (mmHg): 72 Stage: RECOVERY Duration (min): 0 min : 52 sec HR (bpm): 70 SBP (mmHg): 153 DBP (mmHg): 72 Stage: RECOVERY Duration (min): 1 min : 52 sec HR (bpm): 83 SBP (mmHg): 174 DBP (mmHg): 60 Stage: RECOVERY Duration (min): 2 min : 52 sec HR (bpm): 79 SBP (mmHg): 171 DBP (mmHg): 63 Stage: RECOVERY Duration (min): 3 min : 52 sec HR (bpm): 75 SBP (mmHg): 180 DBP (mmHg): 64 Stage: RECOVERY Duration (min): 4 min : 52 sec HR (bpm): 69 SBP (mmHg): 191 DBP (mmHg): 63 Stage: RECOVERY Duration (min): 5 min : 52 sec HR (bpm): 68 SBP (mmHg): 191 DBP (mmHg): 63 Stage: RECOVERY Duration (min): 6 min : 9 sec HR (bpm): 66 SBP (mmHg): 187 DBP (mmHg): 62 Rest HR: 52 bpm Peak HR: 87 bpm Rest Sys BP: 153 mmHg Peak Sys BP: 191 mmHg Max Pred HR: 155 bpm % Max Pred HR: 56 % Target HR: 132 bpm Max RPP: 16,617 bpm*mmHg Termination Reason: Completed Protocol Cardiac Symptoms: Dizziness, Dyspnea Total Time: 0 min : 7 sec Rest Gaston BP: 72 mmHg Peak [place] BP: 63 mmHg Total Dose: 0.4 mg Resting ECG Sinus bradycardia with first degree AV block. Stress ECG No abnormal ST/T wave changes with exercise. Arrhythmias None. Report Signatures
--- NOTE | 2021-08-12 15:28 | WPDCARIOSTRE ---
Nuclear Stress Test INDICATIONS Indications: TYLER, preop PROCEDURE Procedure Performed: Myocardial Perf Spect-Multi Procedure: Patient underwent a lexiscan stress test and immediately was injected with 33.6 mCi of cardiolyte. Multiple tomographic images were obtained. These are of good quality. There is no perfusion defects noted with stress imaging. A separate resting images were obtained after patient was injected with 10.6 mCi of cardiolyte. Multiple tomographic images were obtained. These are of good quality. There is no perfusion defects noted with rest imaging. CONCLUSION Conclusion: 1. Normal myocardial perfusion imaging with no perfusion defects during stress or rest imaging. 2. No reversible ischemia. 3. Left ventriculogram demonstrates normal measured ejection fraction of 71%. 4. No wall motion abnormalities. 5. TID score is normal at 1.04.
== END 2021-08-12 07:30 | disposition home or self-care (01) ==
LOC: CHSCARD 07:30
PROVIDERS: PCP Internal Medicine; Visit Provider Internal Medicine Cardiovascular Disease
DX: Z01.810 Encounter for preprocedural cardiovascular examination (principal)
CPT/HCPCS: 78452; 93017; A9502; J2785

== ENCOUNTER 2021-08-13 12:03 | Outpatient (CLI) | payer MEDICARE, SELFPAY ==
--- NOTE | ~2021-08-13 | US_ITS ---
EXAMINATION: US carotid duplex BI DATE: 08/13/2021 12:40 INDICATION: Bilateral carotid stenosis. TECHNIQUE: Grayscale, color Doppler, and pulsed Doppler images of the cervical carotid arteries were obtained. The degree of vessel stenosis is placed in one of the following categories: normal, <50%, 5 0-69%, >=70% but less than near-occlusion, near-occlusion, or total occlusion. Note that percent sten osis relative to normal distal artery lumen diameter is indirectly measured from velocity measurement s as described by Nikunj, et al. Radiology 2003; 229:340-346. COMPARISON: Ultrasound 02/02/2018 FINDINGS: RIGHT: The right common carotid artery (CCA) peak systolic velocity (PSV) is 69 cm/s. The right internal car otid artery (ICA) PSV is 103 cm/s. The right ICA end-diastolic velocity (EDV) is 36 cm/s. The right I CA/CCA PSV ratio is 1.5. Grayscale and color Doppler images yield an estimate of <50% diameter reduct ion from plaque in the ICA. There is antegrade flow in the right vertebral artery. LEFT: The left CCA PSV is 66 cm/s. The left ICA PSV is 106 cm/s. The left ICA EDV is 35 cm/s. The left ICA/ CCA PSV ratio is 1.6. Grayscale and color Doppler images yield an estimate of <50% diameter reduction from plaque in the ICA. There is antegrade flow in the left vertebral artery. IMPRESSION: 1. <50% stenosis in the right internal carotid artery. 2. <50% stenosis in the left internal carotid artery. Reviewed, dictated and finalized at location A.
== END 2021-08-13 12:04 | disposition home or self-care (01) ==
LOC: CHSIMG 12:05
PROVIDERS: PCP Internal Medicine; Visit Provider Internal Medicine
DX: I65.23 Occlusion and stenosis of bilateral carotid arteries (principal)
CPT/HCPCS: 93880

== ENCOUNTER 2021-09-09 15:06 | Outpatient (RCR) | payer MEDICARE, SELFPAY ==
--- NOTE | 2021-09-09 16:04 | PTOPEVAL ---
Thank you for referring Ayse Lowe to [facility].? The patient is scheduled to be seen for therapy? ____x/week for ___ weeks. Please review, sign, date and return this plan of care TERESA. I agree with and certify that the following plan of care is medically necessary. Referring Physician Date Admitting Provider: Attending Provider: Livier Parmar, MANAGER MECHANICAL MAINTENANCE Referring Provider: *PT Outpatient Evaluation Start: 09/09/21 14:57 Freq: Status: Active Protocol: Document 09/09/21 15:12 ACR (Rec: 09/09/21 16:03 ACR [id number]) Therapy Assessment Status Assessment Status Assessment Status Evaluation Outpatient Past Medical History Neurological History Hx Other Neurological Disorders Yes: takes st carreon wort to improve memory Cardiovascular History Hx Chest Pain Yes Hx Hypercholesterolemia Yes Hx Hypertension Yes Hx Myocardial Infarction Yes Musculoskeletal History Hx Other Musculoskeletal Disorders Yes: knee pain Reproductive History Hx Post Menopausal Yes Hx Tubal Ligation Yes Psychosocial History Hx Anxiety Yes Hx Other Psychiatric Disorders Yes: high stress at work Pain History History of Any Previous or Ongoing No Significant History Instance of Pain Anesthesia History Hx Anesthesia Reactions No Significant History Evaluation Information Problem Diagnosis R RTSA Onset 08/22/21 Subjective Information Patient states that she got a Query Text:As Reported By Patient/ R shoulder total replacement Family on 08/22/21. Patient is to not lift, push, no more than a coffee cup, and no reaching behind the back. Patient states she was not put in a sling and was told to perform elbow AROM, table washes, and pendulums. She states that she is taking tramadol as needed. She states that she is sleeping in bed. Patient's goal is to get her arm back to full motion. 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
--- NOTE | 2021-09-30 16:33 | PTOPEVAL ---
Thank you for referring Ayse Lowe to [facility].? The patient is scheduled to be seen for therapy? ____x/week for ___ weeks. Please review, sign, date and return this plan of care TERESA. I agree with and certify that the following plan of care is medically necessary. Referring Physician Date Admitting Provider: Attending Provider: Livier Parmar, SPRUE KNOCKER Referring Provider: *PT Outpatient Evaluation Start: 09/09/21 14:57 Freq: Status: Active Protocol: Document 09/30/21 15:30 ACR (Rec: 09/30/21 16:32 ACR [id number]) Therapy Assessment Status Assessment Status Assessment Status Progress Outpatient Past Medical History Neurological History Hx Other Neurological Disorders Yes: takes st carreon wort to improve memory Cardiovascular History Hx Chest Pain Yes Hx Hypercholesterolemia Yes Hx Hypertension Yes Hx Myocardial Infarction Yes Musculoskeletal History Hx Other Musculoskeletal Disorders Yes: knee pain Reproductive History Hx Post Menopausal Yes Hx Tubal Ligation Yes Psychosocial History Hx Anxiety Yes Hx Other Psychiatric Disorders Yes: high stress at work Pain History History of Any Previous or Ongoing No Significant History Instance of Pain Anesthesia History Hx Anesthesia Reactions No Significant History Evaluation Information Problem Diagnosis R RTSA Onset 08/22/21 Subjective Information Patient states that since Query Text:As Reported By Patient/ beginning therapy her shoulder Family feels better, but is restricted still. Patient states that she is very restless at night. Patient states that her shoulder has been sore and is unsure and thinks that maybe she rolled over on it while sleeping. She reports that she is taking her pain pill once a day. Pain Assessment Timing of Pain Assessment Timing of Pain Assessment Assessment Pain Scale Pain Scale Used Numeric (1 - 10) Self Report Pain Assessment Right Shoulder(s) Reported Pain Level 4 Greatest Pain Intensity 10 Pain Score Pain Score 4: Self Report Interventions Used Interventions Used By Clinicians Activity or ADL's,Exercise Upper Extremity Range of Motion Scapular/ Shoulder Range of Motion Right Shoulder Flexion - Active 135 Shoulder Lateral Rotation - Passive 63 Upper Extremity Muscle Strength Testing General Upper Extremity Strength Gross Upper Extremity
--- NOTE | 2021-10-11 15:40 | PTOPEVAL ---
Thank you for referring Ayse Lowe to [facility].? The patient is scheduled to be seen for therapy? ____x/week for ___ weeks. Please review, sign, date and return this plan of care TERESA. I agree with and certify that the following plan of care is medically necessary. Referring Physician Date Admitting Provider: Attending Provider: Livier Parmar, NATURALIST Referring Provider: *PT Outpatient Evaluation Start: 09/09/21 14:57 Freq: Status: Active Protocol: Document 10/11/21 15:00 ACR (Rec: 10/11/21 15:39 ACR [id number]) Therapy Assessment Status Assessment Status Assessment Status Progress Outpatient Past Medical History Neurological History Hx Other Neurological Disorders Yes: takes st carreon wort to improve memory Cardiovascular History Hx Chest Pain Yes Hx Hypercholesterolemia Yes Hx Hypertension Yes Hx Myocardial Infarction Yes Musculoskeletal History Hx Other Musculoskeletal Disorders Yes: knee pain Reproductive History Hx Post Menopausal Yes Hx Tubal Ligation Yes Psychosocial History Hx Anxiety Yes Hx Other Psychiatric Disorders Yes: high stress at work Pain History History of Any Previous or Ongoing No Significant History Instance of Pain Anesthesia History Hx Anesthesia Reactions No Significant History Evaluation Information Problem Diagnosis R RTSA Onset 08/22/21 Subjective Information Patient reports that she has Query Text:As Reported By Patient/ been exercising everyday and Family hasn't had any pain. 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 She still is not showering because her dizziness and getting her arm above her head. Pain Assessment Timing of Pain Assessment Timing of Pain Assessment Assessment Pain Scale Pain Scale Used Numeric (1 - 10) Self Report Pain Assessment Right Shoulder(s) Reported Pain Level 1 Greatest Pain Intensity 1 Pain Score Pain Score 1: Self Report Interventions Used Interventions Used By Clinicians Activity or ADL's,Exercise Upper Extremity Range of Motion Scapular/ Shoulder Range of Motion Right Shoulder Flexion - Active 120 Shoulder Lateral Rotation - Active 55 Upper Extremity Muscle Strength Testing Scapular/Shoulder Right Shoulder Flexion Strength 3+ Fair + Shoulder Abduction Strength 4 Good Shoulder Medial Rotation Strength 4 Good Shoulder Late
--- NOTE | 2021-11-05 16:37 | PTOPEVAL ---
Thank you for referring Ayse Lowe to [facility].? The patient is scheduled to be seen for therapy? ____x/week for ___ weeks. Please review, sign, date and return this plan of care TERESA. I agree with and certify that the following plan of care is medically necessary. Referring Physician Date Admitting Provider: Attending Provider: Livier Parmar, FUEL YARD OPERATOR Referring Provider: *PT Outpatient Evaluation Start: 09/09/21 14:57 Freq: Status: Active Protocol: Document 11/05/21 15:30 ACR (Rec: 11/05/21 16:36 ACR [id number]) Therapy Assessment Status Assessment Status Assessment Status Discharge Outpatient Past Medical History Neurological History Hx Other Neurological Disorders Yes: takes st carreon wort to improve memory Cardiovascular History Hx Chest Pain Yes Hx Hypercholesterolemia Yes Hx Hypertension Yes Hx Myocardial Infarction Yes Musculoskeletal History Hx Other Musculoskeletal Disorders Yes: knee pain Reproductive History Hx Post Menopausal Yes Hx Tubal Ligation Yes Psychosocial History Hx Anxiety Yes Hx Other Psychiatric Disorders Yes: high stress at work Pain History History of Any Previous or Ongoing No Significant History Instance of Pain Anesthesia History Hx Anesthesia Reactions No Significant History Evaluation Information Problem Diagnosis R RTSA Onset 08/22/21 Subjective Information Patient reports that since Query Text:As Reported By Patient/ beginning therapy she is Family feeling a lot better. She states that she is able to do pretty much everything that she needs to do such as showering, washing her hair, cooking, and cleaning. The patient reports some difficulty lifting a coffee pot away from her body. The patient is performing her HEP twice daily and does not have any pain. She also reports difficulty with reaching behind her back. Pain Assessment Timing of Pain Assessment Timing of Pain Assessment Assessment Pain Scale Pain Scale Used Numeric (1 - 10) Self Report Pain Assessment Right Shoulder(s) Reported Pain Level 0 Greatest Pain Intensity 2 Pain Score Pain Score 0: Self Report Interventions Used Interventions Used By Clinicians Activity or ADL's,Exercise Upper
== END 2021-11-05 14:22 | disposition home or self-care (01) ==
LOC: CHSPT 15:06
PROVIDERS: Visit Provider Nurse Practitioner Family
DX: Z48.89 Encounter for other specified surgical aftercare (principal); M12.811 Other specific arthropathies, not elsewhere classified, right shoulder
CPT/HCPCS: 97014; 97110; 97161; G0283

== ENCOUNTER 2022-07-21 13:38 | Outpatient (CLI) | payer MEDICARE, SELFPAY ==
--- NOTE | ~2022-07-21 | MM_ITS ---
EXAMINATION: MM screening [facility] BI w marc HISTORY: Screening mammogram, family history of breast cancer in her sister. TECHNIQUE: Craniocaudal and mediolateral oblique 3-D tomosynthesis images were obtained and synthetic 2-D images were generated. CAD analysis was submitted and interpreted. COMPARISON: 07/17/2020, 07/16/2020, 07/14/2019 BREAST PARENCHYMAL COMPOSITION: There are scattered areas of fibroglandular density. FINDINGS: There is no suspicious mass, calcification, or architectural distortion to suggest malignan cy in either breast. There has been no suspicious interval change. IMPRESSION: 1. No mammographic evidence of malignancy. 2. Recommend routine screening mammography in one year. BI-RADS Category 1: Negative Reviewed, dictated and finalized at location A.
== END 2022-07-21 13:39 | disposition home or self-care (01) ==
LOC: CHSIMG 13:39
PROVIDERS: PCP Internal Medicine; Visit Provider Internal Medicine
DX: Z12.31 Encounter for screening mammogram for malignant neoplasm of breast (principal)
CPT/HCPCS: 77063; 77067

== ENCOUNTER 2023-03-23 09:26 | Outpatient (CLI) | payer MEDICARE, SELFPAY ==
--- NOTE | ~2023-03-23 | US_ITS ---
EXAMINATION: US arterial duplex UE DATE: 03/23/2023 10:08 INDICATION: Left subclavian stenosis TECHNIQUE: Multiple grayscale and Doppler ultrasound images of the bilateral subclavian and axillary were obtained. COMPARISON: None FINDINGS: There are triphasic waveforms with brisk systolic upstrokes at the right subclavian and axillary urvashi bert with peak systolic velocities of 108 cm/s in the proximal, 94 cm/s in the mid and 100 cm/s in th e distal right subclavian artery and 74 cm/s in the right axillary artery. No hemodynamic significant stenosis identified on the grayscale imaging. There are triphasic waveforms with brisk systolic upstrokes at the left subclavian and axillary arter ies with peak systolic velocities of 157 cm/s in the proximal, 104 cm/s in the mid and 130 cm/s in th e distal left subclavian artery and 85 cm/s in the left axillary artery. No hemodynamic significant s tenosis identified on the grayscale imaging. IMPRESSION: 1. No evident hemodynamically significant stenosis with normal triphasic waveforms with brisk systoli c upstrokes at the bilateral subclavian and axillary arteries. Reviewed, dictated and finalized at location A. IMPRESSION: 1. No evident hemodynamically significant stenosis with normal triphasic wavefo jamey with brisk systolic upstrokes at the bilateral subclavian and axillary urvashi bert.
== END 2023-03-23 09:27 | disposition home or self-care (01) ==
LOC: CHSIMG 09:27
PROVIDERS: PCP Internal Medicine; Visit Provider Internal Medicine
DX: I77.1 Stricture of artery (principal)
CPT/HCPCS: 93930

== ENCOUNTER 2023-04-07 15:37 | Outpatient (CLI) | payer MEDICARE, SELFPAY ==
--- NOTE | ~2023-04-07 | XR_ITS ---
XR lumbar spine 2-3V DATE: 04/07/2023 16:02 INDICATION: Lower back pain since a fall 6 months ago TECHNIQUE: AP, lateral, coned lateral lumbosacral views COMPARISON: 07/13/2019 lumbar spine FINDINGS: There is moderate rotatory levoscoliosis of the thoracolumbar spine. There is degenerative disc disease throughout the included lower thoracic and lumbar spine, most romi re at L4-5, moderately severe at L1-2 and moderate at the remaining lumbar and lumbosacral interspace s. There is prominent degenerative changes apophyseal joints of the lumbar spine. There is grade 2 anter olisthesis at L4-5. No fracture or bone destruction is evident. The sacroiliac joints are intact. IMPRESSION: Moderate rotatory levoscoliosis Multilevel degenerative disc disease Grade 2 anterolisthesis at L4-5 Reviewed, dictated and finalized at location L.
== END 2023-04-07 15:38 | disposition home or self-care (01) ==
LOC: CHSIMG 15:39
PROVIDERS: PCP Internal Medicine; Visit Provider Internal Medicine
DX: M54.16 Radiculopathy, lumbar region (principal); M41.86 Other forms of scoliosis, lumbar region; M51.36 Other intervertebral disc degeneration, lumbar region; M43.16 Spondylolisthesis, lumbar region
CPT/HCPCS: 72100

== ENCOUNTER 2023-08-05 08:44 | Outpatient (CLI) | payer MEDICARE, SELFPAY ==
--- NOTE | ~2023-08-05 | MM_ITS ---
EXAMINATION: MM screening [facility] BI w marc HISTORY: Screening mammogram TECHNIQUE: Craniocaudal and mediolateral oblique 3-D tomosynthesis images were obtained and synthetic 2-D images were generated. CAD analysis was submitted and interpreted. COMPARISON: 07/21/2022, 07/17/2021, 07/16/2020 BREAST PARENCHYMAL COMPOSITION: There are scattered areas of fibroglandular density. FINDINGS: No suspicious mass, calcification, or architectural distortion are identified in either jania ast to suggest malignancy. There has been no suspicious interval change. IMPRESSION: 1. No mammographic evidence of malignancy. 2. Recommend routine screening mammography in one year. BI-RADS Category 1: Negative Reviewed, dictated and finalized at location A.
== END 2023-08-05 08:45 | disposition home or self-care (01) ==
LOC: CHSIMG 08:46
PROVIDERS: PCP Internal Medicine; Visit Provider Internal Medicine
DX: Z12.31 Encounter for screening mammogram for malignant neoplasm of breast (principal)
CPT/HCPCS: 77063; 77067

== ENCOUNTER 2023-09-01 15:03 | Outpatient (CLI) | payer MEDICARE, SELFPAY ==
--- NOTE | ~2023-09-01 | US_ITS ---
EXAMINATION: US breast LT limited HISTORY: Discoloration of the right breast after screening mammogram TECHNIQUE: Limited right breast ultrasound was performed FINDINGS: No sonographic correlate is identified for the patient's reported breast discoloration. No suspicious cystic or solid mass is seen. IMPRESSION: No specific sonographic correlate is identified for the patient's reported breast discoloration. Furt her evaluation at this time should be based on clinical assessment. Continued follow-up physical exam ination is recommended. BI-RADS Category 1: Negative Reviewed, dictated and finalized at location A. IMPRESSION: No specific sonographic correlate is identified for the patient's reported nico st discoloration. Further evaluation at this time should be based on clinical a ssessment. Continued follow-up physical examination is recommended. BI-RADS Category 1: Negative
== END 2023-09-01 15:04 | disposition home or self-care (01) ==
LOC: CHSIMG 15:04
PROVIDERS: PCP Internal Medicine; Visit Provider Nurse Practitioner Family
DX: R92.8 Other abnormal and inconclusive findings on diagnostic imaging of breast (principal)
CPT/HCPCS: 76642

== ENCOUNTER 2023-09-10 15:03 | Outpatient (CLI) | payer MEDICARE, SELFPAY ==
--- NOTE | ~2023-09-10 | CT_ITS ---
EXAMINATION:CT lung screening DATE: 09/10/2023 15:22 INDICATION: Personal history of nicotine dependence. Smoker who quit 10 years ago with 39 pack year h istory. TECHNIQUE: Computed tomography (CT) of the chest was performed without intravenous contrast. Automate d exposure control and iterative reconstruction technique were employed. The dose-length product (DLP ) was 310.36 mGy-cm. COMPARISON: None. FINDINGS: There is mild scarring at the lung apices. There is mild scarring in paraspinal right lower lobe. Calcified pulmonary nodules are consistent with old granulomatous disease. There is mild atele ctasis bilaterally. No pleural effusion. There is a right shoulder arthroplasty. The heart size is no rmal. No pericardial effusion. There are cysts in the liver measuring up to 3.9 cm. There is a 3.8 cm cyst in left kidney. There is severe thoracic spondylosis. IMPRESSION: 1. Lung-RADS category 2: Benign appearance or behavior. Continue annual screening with noncontrast lo w-dose chest CT in 12 months. Reviewed, dictated and finalized at location E. R WHIPPED TOPPING IMPRESSION: 1. Lung-RADS category 2: Benign appearance or behavior. Continue annual screeni ng with noncontrast low-dose chest CT in 12 months.
== END 2023-09-10 15:04 | disposition home or self-care (01) ==
LOC: CHSIMG 15:05
PROVIDERS: PCP Internal Medicine; Visit Provider Internal Medicine
DX: Z12.2 Encounter for screening for malignant neoplasm of respiratory organs (principal); Z87.891 Personal history of nicotine dependence
CPT/HCPCS: 71271

== ENCOUNTER 2023-10-10 07:44 | Outpatient (CLI) | payer MEDICARE, SELFPAY ==
--- NOTE | ~2023-10-10 | MR_ITS ---
MRI of the lumbar spine Clinical History: Spondylolisthesis Technique: Axial T2-weighted images, and sagittal T1-weighted, T2-weighted, and and T2 fat-sat images were acquired. Findings: No acute fracture seen. There is 1 cm anterolisthesis of L4 over L5. No suspicious bone mar row signal abnormality seen. At L1-L2, there is moderate to advanced degenerative disc narrowing. There is minimal disc bulge with mild to moderate facet arthropathy. No central canal stenosis. There is probable moderate right neur al foraminal narrowing and mild left neural foraminal narrowing. At L2-L3, there is minimal disc bulge with severe facet arthropathy. No central canal stenosis or hayley ral foraminal narrowing. At L3-L4, there is minimal disc bulge with severe facet arthropathy. No central canal stenosis. There is mild right neural foraminal narrowing. Left neural foramen preserved. At L4-L5, there is disc bulge/uncovering with severe facet arthropathy, resulting in severe central c anal stenosis/thecal sac compression. There is severe right neural foraminal narrowing, and moderate left neural foraminal narrowing. At L5-S1, there is disc bulge and moderate facet arthropathy. There is left lateral recess stenosis, severe left neural foraminal compromise. Right neural foramen preserved. There is no ugo central ca nal stenosis. Paravertebral soft tissues are unremarkable. Impression: 1 cm anterolisthesis of L4 over L5, as detailed above. Severe degenerative spondylosis of the L4-L5 level, as detailed above. [id number] degenerative spondylosis at L5-S1. Additional mild degenerative changes, as above. Reviewed, dictated and finalized at [facility]. GATOR TRAPPER Impression: 1 cm anterolisthesis of L4 over L5, as detailed above. Severe degenerative spondylosis of the L4-L5 level, as detailed above. Jucb-os-[id number] degenerative spondylosis at L5-S1. Additional mild degenerative changes, as above.
== END 2023-10-10 07:45 | disposition home or self-care (01) ==
LOC: CHSIMG 07:45
PROVIDERS: PCP Neurological Surgery; Visit Provider Neurological Surgery
DX: M43.16 Spondylolisthesis, lumbar region (principal)
CPT/HCPCS: 72148

== ENCOUNTER 2024-04-06 14:54 | Outpatient (CLI) | payer MEDICARE, SELFPAY ==
--- NOTE | 2024-04-06 15:04 | ECG_ITS ---
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 Measurements Intervals [place] Rate: 54 P: 33 ID: [id number] QRS: -23 QRSD: 92 T: 16 QT: 396 QTc: 378 Interpretive Statements SINUS BRADYCARDIA WITH FIRST DEGREE AV BLOCK BORDERLINE LEFT AXIS DEVIATION [QRS AXIS < -20] LOW QRS VOLTAGE IN PRECORDIAL LEADS [QRS DEFLECTION < 1.0 mV IN CHEST LEADS] MODERATE VOLTAGE CRITERIA FOR LVH, CONSIDER NORMAL VARIANT [MEETS CRITERIA IN ONE OF: R(aVL), S(V1), R(V5), R(V5/V6)+S(V1)] No previous ECG available for comparison Electronically Signed On 04-07-2024 13:34:43 CDT by Hailey Suárez M.D.
[2024-04-06 15:29] LABS: Hematocrit 40.5 % (37.0-47.0); Hemoglobin 12.9 g/dL (12.0-15.0); Mean Corpuscular HGB Conc 31.9 g/dl (32-36); Mean Corpuscular Hemoglobin 29.5 pg (26-34); Mean Corpuscular Volume 92.5 fl (80-100); Mean Platelet Volume 11.6 fl (7.4-10.4); Platelet Count Result 204 k/mm3 (150-375); Red Blood Count 4.38 M/mm3 (4.2-5.4); Red Cell Distribution Width 12.8 % (11.5-14.5)
[2024-04-06 15:39] LABS: Anion Gap 5 mmol/L (4-12); Blood Urea Nitrogen 27 mg/dL (7-17); Calcium 9.9 mg/dL (8.4-10.2); Carbon Dioxide 30 mmol/L (22-30); Chloride 101 mmol/L (98-107); Estimated Glomerular Filt Rate 49; Glucose 116 mg/dL (65-110); Potassium 5.1 mmol/L (3.4-5.0); Sodium 136 mmol/L (137-145)
[2024-04-06 15:40] LABS: Prothrombin Time 13.1 Seconds (11.1-14.7)
[2024-04-06 15:41] LABS: Partial Thromboplastin Time 29.1 Seconds (22.3-36.8)
[2024-04-06 16:24] LABS: Appearance Urine Clear (Clear); Bacteria Urine None Seen /hpf; Bilirubin Urine Negative (Negative); Blood Urine Negative (Negative); Color Urine Yellow (Yellow); Glucose Urine UA Negative (Negative); Ketones Urine Negative (Negative); Leukocyte Esterase Ur 2+ LEU/UL (Negative); Nitrate Urine Negative (Negative); Non Pathogenic Casts 0-2; Protein Urine Negative (Negative); RBC Urine 0-2 /hpf (0-2); Squamous Epithelial Cell Urine None Seen /hpf (Few); Urobilinogen Urine 0.2 mg/dL (<2.0); pH Urine 7.5 (5.0-9.0)
[2024-04-06 16:27] LABS: Add Urine Microscopic? YES
== END 2024-04-06 14:55 | disposition home or self-care (01) ==
LOC: ANHSURGERY 15:00
PROVIDERS: PCP Internal Medicine; Visit Provider Neurological Surgery
DX: Z01.818 Encounter for other preprocedural examination (principal); M43.16 Spondylolisthesis, lumbar region; I10 Essential (primary) hypertension
CPT/HCPCS: 36415; 80048; 81001; 85027; 85610; 85730; 86850; 86900; 86901; 87086; 87088; 93005

== ENCOUNTER 2024-06-17 08:45 | Outpatient (CLI) | payer MEDICARE, SELFPAY ==
[2024-06-17 09:44] LABS: Hematocrit 38.4 % (37.0-47.0); Hemoglobin 12.4 g/dL (12.0-15.0); Mean Corpuscular HGB Conc 32.3 g/dl (32-36); Mean Platelet Volume 12.1 fl (7.4-10.4); Platelet Count Result 172 k/mm3 (150-375); Red Blood Count 4.13 M/mm3 (4.2-5.4); Red Cell Distribution Width 13.2 % (11.5-14.5); White Blood Count 6.4 K/mm3 (4.5-10.0)
[2024-06-17 09:50] LABS: Prothrombin Time 13.3 Seconds (11.1-14.7)
[2024-06-17 09:52] LABS: Anion Gap 11 mmol/L (4-12); Blood Urea Nitrogen 39 mg/dL (7-17); Calcium 9.8 mg/dL (8.4-10.2); Carbon Dioxide 29 mmol/L (22-30); Chloride 97 mmol/L (98-107); Estimated Glomerular Filt Rate 45; Glucose 92 mg/dL (65-110); Potassium 4.5 mmol/L (3.4-5.0); Sodium 137 mmol/L (137-145)
[2024-06-17 09:54] LABS: Add Urine Microscopic? YES; Appearance Urine Clear (Clear); Bacteria Urine None Seen /hpf; Bilirubin Urine Negative (Negative); Blood Urine Negative (Negative); Color Urine Yellow (Yellow); Glucose Urine UA Negative (Negative); Ketones Urine Negative (Negative); Leukocyte Esterase Ur Trace LEU/UL (Negative); Nitrate Urine Negative (Negative); Non Pathogenic Casts 0-2; Protein Urine Negative (Negative); RBC Urine 0-2 /hpf (0-2); Specific Grav Ur 1.014 (1.001-1.035); Squamous Epithelial Cell Urine None Seen /hpf (Few); Urobilinogen Urine 0.2 mg/dL (<2.0); WBC Urine 0-5 /hpf (0-3)
== END 2024-06-17 08:46 | disposition home or self-care (01) ==
LOC: ANHSURGERY 08:52
PROVIDERS: PCP Internal Medicine; Visit Provider Neurological Surgery
DX: Z01.818 Encounter for other preprocedural examination (principal); M43.16 Spondylolisthesis, lumbar region
CPT/HCPCS: 36415; 80048; 81001; 85027; 85610; 85730; 86850; 86900; 86901

== ENCOUNTER 2024-06-21 12:38 | Inpatient (IN) | payer MEDICARE, SELFPAY ==
--- NOTE | 2024-04-04 09:57 | PC.NURSE ---
Report to the Outpatient Waiting Room, entrance under the green pavilion located off [facility], at time _7:30 AM on date __04/12/24 . Planned Procedure Time: 9:30 AM . Time changes happen often and if your time is changed the preop area will call you the afternoon before. - You and your visitor will be asked to self-screen and do not enter if you have any COVID symptoms. - A mask is optional within the hospital at this time. Patients may have clear liquids (water, carbonated beverages, clear teas, apple juice) until 3 hours prior to surgery(6:30 AM) with a maximum of 20 ounces. - No food from midnight until time of surgery - Infants may have breast milk until 4 hours before surgery, infant formula 6 hours prior to surgery. - Children will be allowed to drink immediately following surgery. If applicable, please bring a bottle or sippy cup to assist with drinking. Juice, water, soda, and popsicles are readily available. For infants on formula, please bring formula the day of surgery. Pacifiers are allowed. Take the following medications with a SIP of water the morning of surgery: __INHALER IF NEEDED,CARVEDILOL DO NOT STOP ANY OF YOUR OTHER PRESCRIPTION MEDICATIONS PRIOR TO SURGERY ?EXCEPT THE FOLLOWING Medications to discontinue per physician __PT STATES HOLD ASPIRIN AND CELECOXIB 7 DAYS PRE OP PER DR KENDRICK, LAST DOSE 04/04/24 HOLD ALL VITAMINS AND SUPPLEMENTS 3 DAYS PRE OP .LAST DOSE 04/08/24 Please no make-up, nail english, hairspray, perfume, deodorant, or body powder the day of surgery. No jewelry (including any body piercings) or valuables the day of surgery, leave them at home. Please take a shower or bath the night before, or the morning of, surgery with an antibacterial soap. Wear comfortable, loose fitting clothing. Children are encouraged to wear pajamas. - Jewelry must be removed prior to entering the operating room. Rings and piercings that are not removed may be cut off. - The hospital will not accept responsibility for valuables. - Please leave all valuables, including medications, at home the day of surgery. If you are going home after surgery, a licensed form setter/driver must drive you home. - NO public transportation without another adult if you receive anesthesia. - We recommend that an adult stay with you for 24 hours following discharge. - We also recommend that you do not drive, make important decision, drink alcoholic beverages, or take any drugs that were not prescribed by your health care provider for at least 24 hours after your discharge time Follow any additional instructions given to you from your surgeon. If you or anyone in your household have experienced Covid symptoms in the past week, please notify your surgeon or the nurse liaison at the phone number below for possible testing. Telephone instructions given to __PATIENT and asked if any additional questions and then verbalized understanding. Patient advised to call surgeon office or pre surgery nurse liaison [phone] if any additional questions.
[2024-04-04 10:07] VITALS: BMI 46.0
--- NOTE | 2024-06-16 11:13 | PC.NURSE ---
Report to the Outpatient Waiting Room, entrance under the green pavilion located off [facility], at time _8:30 AM on date _06/21/24 . Planned Procedure Time: _10:30 AM . Time changes happen often and if your time is changed the preop area will call you the afternoon before. - You and your visitor will be asked to self-screen and do not enter if you have any COVID symptoms. - A mask is optional within the hospital at this time. Patients may have clear liquids (water, carbonated beverages, clear teas, apple juice) until 3 hours prior to surgery(7:30 AM) with a maximum of 20 ounces. - No food from midnight until time of surgery - Infants may have breast milk until 4 hours before surgery, infant formula 6 hours prior to surgery. - Children will be allowed to drink immediately following surgery. If applicable, please bring a bottle or sippy cup to assist with drinking. Juice, water, soda, and popsicles are readily available. For infants on formula, please bring formula the day of surgery. Pacifiers are allowed. Take the following medications with a SIP of water the morning of surgery: _ALBUTEROL INHALER IF NEEDED,CARVEDILOL, DO NOT STOP ANY OF YOUR OTHER PRESCRIPTION MEDICATIONS PRIOR TO SURGERY ?EXCEPT THE FOLLOWING Medications to discontinue per physician ____HOLD _CELECOXIB AND ASPIRIN 7 DAYS PRE OP PER DR KENDRICK PT STATES. LAST DOSE CELECOXIB 06/13/24.LAST ASPIRIN 06/16/24.( PT DIDN'T REMEMBER TO HOLD ) HOLD ALL VITAMINS AND SUPPLEMENTS 3 DAYS PRE OP.LAST DOSE 06/17/24 Please no make-up, nail kazakh, hairspray, perfume, deodorant, or body powder the day of surgery. No jewelry (including any body piercings) or valuables the day of surgery, leave them at home. Please take a shower or bath the night before, or the morning of, surgery with an antibacterial soap. Wear comfortable, loose fitting clothing. Children are encouraged to wear pajamas. - Jewelry must be removed prior to entering the operating room. Rings and piercings that are not removed may be cut off. - The hospital will not accept responsibility for valuables. - Please leave all valuables, including medications, at home the day of surgery. If you are going home after surgery, a licensed cdl a driver must drive you home. - NO public transportation without another adult if you receive anesthesia. - We recommend that an adult stay with you for 24 hours following discharge. - We also recommend that you do not drive, make important decision, drink alcoholic beverages, or take any drugs that were not prescribed by your health care provider for at least 24 hours after your discharge time. Follow any additional instructions given to you from your surgeon. If you or anyone in your household have experienced Covid symptoms in the past week, please notify your surgeon or the nurse liaison at the phone number below for possible testing. Telephone instructions given to _PATIENT and asked if any additional questions and then verbalized understanding. Patient advised to call surgeon office or pre surgery nurse liaison [phone] if any additional questions.
[2024-06-16 11:24] VITALS: BMI 46.0
--- NOTE | 2024-06-16 11:28 | PC.NURSE ---
STATES NO CHANGE IN HEALTH HX SINCE LAST INTERVIEW APRIL 2024. SURGERY WAS CANCELLED R/T INSURANCE WAS NOT APPROVED AT THE TIME
[2024-06-21] VITALS (21 sets, daily range): BP systolic 114–162; BP diastolic 53–97; PULSE 53–73; RESP 12–20; TEMP 35.1–36.6; O2SAT 95–100; BMI 45.1
--- NOTE | ~2024-06-21 | XR_ITS ---
EXAMINATION: XR fluoroscopy no charge DATE: 06/21/2024 11:32 INDICATION: L4-L5 and L5-S1 posterior lumbar interbody fusion TECHNIQUE: 2 fluoroscopic images of the upper lumbar spine were obtained during procedure performed tara Martinez. Radiologist was not present for the imaging or procedure. The amount of fluoroscopy t juan manuel used during this procedure was 0.3 minutes. COMPARISON: Lumbar spine MR dated 10/10/2023 FINDINGS: Initial image demonstrates soft tissue retractors and lap sponge projecting posterior to the lumbosac ral junction. The tips of a pair of metallic probes project over the posterior elements at L5-S1. Sub sequent image demonstrates discectomies and anterior spinal fusion with interbody fusion devices at L 4-L5 and L5-S1. There is also been an L4-S1 posterior spinal fusion with vertical lauryn and pedicle scr ew fixation. There've also been prior L4 and L5 laminectomies. IMPRESSION: 1. Fluoroscopy utilized during L4 and L5 laminectomies and combined instrumented L4-S1 anterior and p osterior spinal fusion. See procedure note for further detail. Reviewed, dictated and finalized at location A. IMPRESSION: 1. Fluoroscopy utilized during L4 and L5 laminectomies and combined instrumente d L4-S1 anterior and posterior spinal fusion. See procedure note for further de tail.
--- NOTE | 2024-06-21 07:02 | WPDANESEPPF ---
Anes - Initial Pre Proc Eval Procedure: Operation Date: 06/21/24 07:30 Proposed Procedures p L4-5, L5-S1 Posterior Lumbar Interbody Fusion - Olayinka Martinez MD Date/Time: 06/21/24 07:02 Surgeon: Olayinka Martinez MD Pre Op Diagnosis: L4-5 spondylolisthesis, L5-S1 spondylosis, Patient Data Age: 69 Gender: F Height: 1.5 m Weight: 101.3 kg Last Vital Signs Temp 97.4 F L 06/21/24 06:00 Pulse 55 L 06/21/24 06:00 Resp 18 06/21/24 06:00 BP 162/55 H 06/21/24 06:00 Pulse Ox 98 06/21/24 06:00 O2 Del Method Room Air 06/21/24 06:00 Allergies Allergy/AdvReac Type Severity Reaction Status Date / Time meperidine [From Demerol] AdvReac Hallucinati Verified 06/21/24 06:59 ng Home Medications Medication Instructions Recorded Confirmed Type Vanoss's wort 300 mg capsule 300 mg PO DAILY 01/12/20 06/16/24 History aspirin 81 mg tablet,delayed 81 mg PO DAILY 01/12/20 06/16/24 History release (Adult Aspirin Regimen) calcium carb, gluc 500 mg 500 tablet PO DAILY 01/12/20 06/16/24 History calcium-magnesium gluc, oxide 250 mg tablet (Calcium Magnesium) carvedilol 6.25 mg tablet (Coreg) 6.25 mg PO Q12H 01/12/20 06/16/24 History cholecalciferol (vitamin D3) 100 5,000 unit PO DAILY 01/12/20 06/16/24 History mcg (4,000 unit) tablet cyanocobalamin (vitamin B-12) 500 500 mcg PO DAILY 01/12/20 06/16/24 History mcg tablet magnesium oxide 400 mg PO BID 01/12/20 06/16/24 History multivitamin 1 tablet PO DAILY 01/12/20 06/16/24 History pravastatin 10 mg tablet 10 mg PO DAILY 01/12/20 06/16/24 History tramadol 50 mg tablet 50 mg PO Q6H PRN Pain 07/22/21 06/16/24 History losartan 100 mg tablet 100 mg PO DAILY 09/25/23 08/15/24 History mirabegron 25 mg tablet,extended 25 mg PO DAILY 07/27/23 06/16/24 History release 24 hr (Myrbetriq) triamterene 37.5 1 cap PO DAILY 07/27/23 06/16/24 History mg-hydrochlorothiazide 25 mg capsule albuterol sulfate 90 mcg/actuation 2 puff inhalation PRN PRN 04/04/24 06/16/24 History aerosol inhaler Shortness Of Breath celecoxib 200 mg capsule 200 mg PO DAILY 04/04/24 06/16/24 History Patient hx anesthesia problems: none Family hx anesthesia problems: none Results Review: All pre-operative results and documents have been reviewed as part of the pre-operative evaluation. [facility] Past Medical History Medical History Arthritis Asthma Dyslipidemia Essential hypertension History of heart attack 2017 Obesity Surgical History Surgical History H/O tubal ligation History of delivery Family History Family History Father Diabetes mellitus Hypertension Family history of malignant neoplasm Social History Social History Smoking packs per day: 2 Smoking cigarettes per day: 40.0 Years smoked: 25 Smoking pack-years: 50.00 Smoking status: Former smoker Tobacco type: cigarettes Smoking end date: 11/02/13 Alcohol intake: current Drinks per week: 1 Alcohol use details: Occasional Substance use: never Substance use type: does not use Do You Feel Safe in your Home?: Yes Lack of Transportation: No Lack of Food: Never True Current Housing: I Have Housing Concerned About Future Housing: No Difficulty Paying Gas/Electric Bills: No Difficulty Paying for Meds: No Currently Unemployed: No Education: High School Diploma/GED Difficulty w/ Childcare or Family Care: No Living arrangements: alone Gender identity (if verbalized by the patient): Female Sexual Orientation (if Verbalized by the Patient): Straight or Heterosexual Spiritual care concerns: No Anes - Eval Final PreProcedure Day of Procedure 06/21/24 07:02 Patient weight: morbidly obese He
[2024-06-21] MEDS: LACTATED RINGERS 1,000 ML 30 ML IV CONT ×3 (07:10→11:25)
--- NOTE | 2024-06-21 07:44 | PM.IMHP ---
H&P: HPI History of Present Illness Date/Time: 06/21/24 07:44 Chief Complaint: back and leg pain Narrative: Ayse presents for L4-5 and L5-S1 posterior lumbar interbody fusion. She has a lot of burning, a lot of pain in her low back area. Sometimes when she bends over too far, she can't get back up because her back feels like it's going to catch. Her buttock area starts burning and shaking, like I get weak, when she stands over the bath for too long. She sometimes can stand and walk as far as she wants but other times she cannot and states that it just depends on the day. She says there are days where I do too much and have to sit down and rest because I feel like I am going to fall. This improves after sitting for about 20 minutes, after which she is able to get back up and continue her day. She has intermittent tingling in the bottom of her feet when she dangles her legs off the side of the bed but not otherwise. She is not having any new bowel or bladder difficulty or other new constitutional problems at this time. Review of Systems Review of Systems: Const All systems reviewed & are unremarkable except as noted in HPI and below Denies chills, Denies fever(s), Denies weight gain and Denies weight loss Eyes Denies change in vision and Denies diplopia ENT Denies disequilibrium Card Denies chest pain and Denies dyspnea Resp Denies cough and Denies dyspnea GI Denies abdominal pain, Denies change in bowel habits, Denies fecal incontinence and Denies vomiting Denies hematuria, Denies urinary frequency, Denies difficulty voiding, Denies dysuria, Denies urinary incontinence, Denies urinary hesitancy and Denies urinary urgency Musc Reports as per HPI Skin/ Breast Reports system reviewed and no additional complaints, except as documented Neuro Reports as per HPI and Denies disequilibrium Psych Reports no additional complaints, Denies depression and Denies hopelessness Endo Reports no additional complaints and Denies polyuria Walter/ Lymph Reports no additional complaints Aller/ Immun Reports no additional complaints PMFSH Past Medical History Medical History Arthritis Asthma Dyslipidemia Essential hypertension History of heart attack 2017 Obesity Surgical History Surgical History H/O tubal ligation History of delivery Family History Family History Father Diabetes mellitus Hypertension Family history of malignant neoplasm Social History Social History Smoking packs per day: 2 Smoking cigarettes per day: 40.0 Years smoked: 25 Smoking pack-years: 50.00 Smoking status: Former smoker Tobacco type: cigarettes Smoking end date: 11/02/13 Alcohol intake: current Drinks per week: 1 Alcohol use details: Occasional Substance use: never Substance use type: does not use Do You Feel Safe in your Home?: Yes Lack of Transportation: No Lack of Food: Never True Current Housing: I Have Housing Concerned About Future Housing: No Difficulty Paying Gas/Electric Bills: No Difficulty Paying for Meds: No Currently Unemployed: No Education: High School Diploma/GED Difficulty w/ Childcare or Family Care: No Living arrangements: alone Gender identity (if verbalized by the patient): Female Sexual Orientation (if Verbalized by the Patient): Straight or Heterosexual Spiritual care concerns: No Meds Home Medications and Allergies Home Medications Medication Instructions Recorded Confirmed Type Hiwot's wort 300 mg capsule 300 mg PO DAILY 01/12/20 06/21/24 History aspirin 81 mg tablet,delayed 81 mg PO DAILY 01/12/20 06/21/24 History release (Adult Aspirin Regimen) calcium carb, gluc 500 mg 500 tablet PO DA
--- NOTE | 2024-06-21 07:49 | WPDHPUPDATE1 ---
History and Physical Update Update Date/Time: 06/21/24 07:49 History and Physical has been reviewed, including an updated exam of the patient. There are NO changes in the patient's condition. Risks, benefits, and alternatives have been discussed and questions answered. Patient agrees to proceed with procedure.
[2024-06-21] MEDS: ceFAZolin 2 GM/D5W 50 ML 2 GM/50 ML BAG IVPB (08:08)
[2024-06-21] MEDS: LIDO 1%/EPINEPHRINE 1:100,000 50 ML VIAL 10 ML INFILTRATE (08:41)
[2024-06-21] MEDS: fentaNYL CITRATE INJ (*CRX) 100 MCG/2 ML VIAL 25 MCG IV PUSH ×4 (11:36→12:12)
--- NOTE | 2024-06-21 11:37 | W.PM.PROC2 ---
Procedure Note - Detailed Date of Procedure 06/21/24 Pre-op Diagnosis L4-5 spondylolisthesis, L5-S1 spondylosis, Post-op Diagnosis Same Procedure Performed L4-5 and L5-S1 complete laminectomy and bilateral facetectomy, L4-5 and L5-S1 complete diskectomy and interbody arthrodesis utilizing titanium interbody devices and local autograft, L4-5 and L5-S1 pedicle screw instrumentation Surgeon Olayinka Martinez MD Anesthesia General Description of Procedure Patient was brought to the operating room in supine position, was sedated, intubated placed under general anesthesia in routine fashion. She was then turned into the prone position on an open Bowen table. The of operation on her back was examined, marked for incision, prepped and draped in routine sterile fashion. Incision was marked in the midline over the L4-5 and L5-S1 spinous processes. This area was injected with 0.5% lidocaine with [id number] epinephrine. Intravenous antibiotics given prior to incision. Incision was made with a 10 blade scalpel. Bovie cautery was used to come down to the lumbodorsal fascia. Subperiosteal dissection of the muscle soft tissue away from spinous process and lamina was performed at L4-5 and L5-S1 with a subperiosteal elevator and Bovie cautery. A verifying x-rays obtained to verify the level of operation. At L4-L5 spinous processes were removed with a Nirali rongeur. Kerrison punches, curved curettes and Leksell rongeur used to remove lamina in the midline and to the soft contents of the canal were encountered. Midas-Jarrett drill was used to resect the pars bilaterally at L4 and L5. The inferior articular process of L4-L5 could then be removed bilaterally. The spaces spinous process were stripped free of soft tissue and morselized for later use as interbody autograft. Kerrison punches and curved curettes were used to define a plane with the dura and removed bone and ligament flush the pedicle and through the foramina widely decompressing the exiting nerve roots. With thecal sac retracted and protected the disc space was entered bilaterally using 11 blade scalpel. Scrapers a very sizes, curettes of various configurations, pituitary rongeur and a rasp were used to remove as much cartilaginous endplate and disc material as possible down to bleeding cortical flat surfaces on the opposing bones. The disc space and sized appropriately sized interbody devices were chosen and filled with local autograft bone. These were 9 mm deep devices at L4-5 and 11 mm device at L5-S1. The disc space was likewise filled with local autograft bone medially and anteriorly. Interbody devices were then placed with 2-3 mm countersink within the disc space bilaterally at each level. Pedicle screw instrumentation was then performed by observing and palpating the pedicle hole was made superior to the process above the pedicle using a Midas Jarrett drill. The pedicle was then cannulated with pedicle probe, checked for CT new to ball probe, tapped with a 5.5 mm tap and 6.5 x 50 mm screw was placed in each pedicle on each side L4-S1. Rods were placed in screw heads on either side and secured position using the caps that purpose. These were 60 mm rods. A verifying x-rays obtained to verify good position of the instrumentation. The caps were then definitively tightened with the torque and anti torque device. The wound was copiously irrigated with bacitracin irrigation all bleeding stopped with bipolar Bovie cautery and Gelfoam thrombin powder. The wound was then closed in layered fashion with 2-0 Vicryl interrupted sutures in the lumbodorsal fascia and Herman's layer. 3-0 Vicryl buried interrupted sutures were placed in the dermis and the skin was closed with a running 4-0 Monocryl subcuticular stitch and dressed with Dermabond. The patient was allowed wake up in the operating room and was taken to the recovery room in stable condition. There were no immediate complications of this operation. All
--- NOTE | 2024-06-21 12:45 | ADMGEN ---
This patient, Ayse Lowe, was admitted to 2 Medical Room 255-01. Patient/family oriented to hospital policies and general routines including ID bracelet, bed and alarms, visiting hours, pain management, procedures, bathroom and other care routines, personal items, smoking policy, room service/diet, and visiting hours. Information on how to activate the Rapid Response Team has been discussed. Patient/Family are encouraged to report perceived risks to care and to ask questions if they do not understand what they are told or what they should do.
[2024-06-21] MEDS: HYDROcodone/acetaminophen (*CRX) 10-325 MG TABLET 1 TAB PO ×3 (13:33→23:56)
[2024-06-21 14:10] LABS: Hematocrit 30.7 % (37.0-47.0); Hemoglobin 9.9 g/dL (12.0-15.0); Immature Platelet Fraction Pct 11.8 % (0.9-11.2); Mean Corpuscular HGB Conc 32.2 g/dl (32-36); Mean Platelet Volume 12.7 fl (7.4-10.4); Red Cell Distribution Width 13.2 % (11.5-14.5); White Blood Count 8.2 K/mm3 (4.5-10.0)
[2024-06-21] MEDS: KCL 20 MEQ/D5/0.45% SOD CHL 1,000 ML 100 ML IV CONT (15:26)
[2024-06-21] MEDS: HYDROmorphone HCL INJ (*CRX) 1 MG/ML SYR 0.5 MG IV PUSH (15:43)
[2024-06-21] MEDS: ceFAZolin 1 GM/NS 50 ML 1 GM/50 ML BAG IVPB ×2 (16:11→23:57)
[2024-06-21] MEDS: MAGNESIUM OXIDE 400 MG TABLET PO (16:13)
[2024-06-21] MEDS: carvediloL 6.25 MG TABLET PO (17:10)
[2024-06-21] MEDS: DOCUSATE SODIUM 100 MG CAPSULE PO (21:15)
[2024-06-21] MEDS: CYCLOBENZAPRINE HCL 10 MG TABLET PO (21:15)
[2024-06-22] VITALS (7 sets, daily range): BP systolic 101–122; BP diastolic 24–67; PULSE 68–88; RESP 16–20; TEMP 36.1–36.8; O2SAT 94–100
[2024-06-22] MEDS: HYDROcodone/acetaminophen (*CRX) 10-325 MG TABLET 1 TAB PO ×3 (05:07→20:10)
[2024-06-22] MEDS: CYCLOBENZAPRINE HCL 10 MG TABLET PO ×2 (05:08→12:48)
--- NOTE | 2024-06-22 08:24 | WPDANESPN ---
Anes - Prog Note Post-Op Date/Time: 06/22/24 08:24 Cardiovascular status: normal Respiratory status: normal Airway patency: baseline Mental status: baseline Post-Op hydration status: normal Vital Signs: Last Vital Signs Temp 36.1 C L 06/22/24 03:32 Pulse 72 06/22/24 03:32 Resp 18 06/22/24 03:32 BP 122/67 06/22/24 03:32 Pulse Ox 100 06/22/24 03:32 O2 Del Method Room Air 06/21/24 12:25 O2 Flow Rate 10 06/21/24 11:25 Pain Score (VAS): 410 I/O: Intake & Output 06/21/24 06/22/24 06/22/24 23:59 07:59 15:59 Intake Total 365 340 Output Total 300 1430 Balance 65 -1090 Laboratory Tests 06/21/24 14:01 06/21/24 14:01 WBC 8.2 RBC 3.30 L Hgb 9.9 L Hct 30.7 L MCV 93.0 MCH 30.0 MCHC 32.2 RDW 13.2 Plt Count TNP MPV 12.7 H % Immature Plt Fraction 11.8 H Post-procedural complaints: none Patient Feedback: Patient satisfied with anesthetic care.
[2024-06-22 08:38] LABS: Hematocrit 27.7 % (37.0-47.0); Hemoglobin 9.1 g/dL (12.0-15.0); Mean Corpuscular HGB Conc 32.9 g/dl (32-36); Mean Corpuscular Hemoglobin 30.6 pg (26-34); Mean Corpuscular Volume 93.3 fl (80-100); Mean Platelet Volume 11.7 fl (7.4-10.4); Platelet Count Result 154 k/mm3 (150-375); Red Blood Count 2.97 M/mm3 (4.2-5.4); Red Cell Distribution Width 13.4 % (11.5-14.5); White Blood Count 8.2 K/mm3 (4.5-10.0)
[2024-06-22] MEDS: ceFAZolin 1 GM/NS 50 ML 1 GM/50 ML BAG IVPB ×2 (08:58→15:28)
[2024-06-22] MEDS: CYANOCOBALAMIN 500 MCG TABLET PO (09:00)
[2024-06-22] MEDS: CHOLECALCIFEROL 5,000 UNITS TABLET 5000 UNITS PO (09:00)
[2024-06-22] MEDS: PRAVASTATIN SODIUM 10 MG TABLET PO (09:00)
[2024-06-22] MEDS: MIRABEGRON 25 MG ER TABLET PO (09:00)
[2024-06-22] MEDS: carvediloL 6.25 MG TABLET PO (09:00)
[2024-06-22] MEDS: LOSARTAN POTASSIUM 100 MG TABLET PO (09:00)
[2024-06-22] MEDS: DOCUSATE SODIUM 100 MG CAPSULE PO ×2 (09:00→20:11)
[2024-06-22] MEDS: MULTIVITAMINS THERAPEUTIC TAB (*BKC) 1 TABLET PO (09:00)
[2024-06-22] MEDS: MAGNESIUM OXIDE 400 MG TABLET PO ×2 (09:00→17:06)
[2024-06-22] MEDS: TRIAMTERENE 37.5 MG/HCTZ 25 MG (MAXZIDE) TABLET 1 TAB PO (09:06)
[2024-06-22] MEDS: KCL 20 MEQ/D5/0.45% SOD CHL 1,000 ML 30 ML IV CONT (15:36)
--- NOTE | 2024-06-22 15:44 | WPDNEUROSGPN ---
Progress Note: A&P Assessment and Plan (1) Status post lumbar spinal arthrodesis: Code(s): Z98.1 - Arthrodesis status Status: Acute Plan -Continue hemovac drain -Continue mobilization, PT/OT -Will see how recent pain medication helps with her current complaints; if she continues to have uncontrolled leg pain in particular, will consider adding a steroid Subjective Date/time seen: 06/22/24 12:44 Interval history: She is currently crying in pain over new left-sided pain in the back down to the back of the leg which started a few hours ago. This is new and was not present prior to or immediately after surgery. She was feeling pretty well this morning. She ambulated with therapy who cleared her for discharge home. Her roy catheter is out but she has not yet voided. [address] Review of Systems Review of Systems: All systems reviewed & are unremarkable except as noted in HPI and below Exam Narrative: AOx4 Dressing c/d/i full strength in lower extremities Sensation intact to light touch Objective Data Vital Signs Vital Signs: Vital Signs - 24 hr 06/21/24 17:10 06/21/24 16:00 06/21/24 16:00 Temperature 97.2 F L 97.2 F L Pulse Rate 64 60 Respiratory Rate 18 Blood Pressure 138/60 Pulse Oximetry 95 Oxygen Delivery 06/21/24 20:00 06/22/24 00:00 06/22/24 03:32 Temperature 97.8 F 97.8 F 96.9 F L Pulse Rate 73 86 72 Respiratory Rate 20 20 18 Blood Pressure 123/56 L 122/52 L 122/67 Pulse Oximetry 98 100 100 Oxygen Delivery 06/22/24 08:53 06/22/24 09:00 06/22/24 09:00 Temperature Pulse Rate 72 Respiratory Rate 18 Blood Pressure Pulse Oximetry 100 Oxygen Delivery Room Air Room Air 06/22/24 10:46 06/22/24 11:53 06/22/24 11:53 Temperature 98.2 F Pulse Rate 71 Respiratory Rate 16 Blood Pressure 110/58 L Pulse Oximetry 94 Oxygen Delivery Room Air Intake/Output Intake/Output: Intake & Output 06/19/24 06/20/24 06/21/24 06/22/24 23:59 23:59 23:59 23:59 Intake Total 815 1283.4 Output Total 370 1430 Balance 445 -146.6 Meds/Results Medications: Active Medications Generic Name Dose Route Start Last Admin Trade Name Freq PRN Reason Stop Dose Admin Hydrocodone Bitart/Acetaminophen 1 tab 06/21/24 12:38 06/22/24 12:48 Hydrocodone/Acetaminophen (*Crx) 10-325 Mg Tablet PO 1 tab Q4H PRN Administration Moderate Pain (4-6) Al Hydrox/Mg Hydrox/Simethicone 20 ml 06/21/24 12:38 Mag Hydrox/Al Hydrox/Simeth 30 Ml Udc PO Q4H PRN Indigestion/Heartburn Albuterol 2 puff 06/21/24 12:38 Albuterol Sulfate (*Sp) Aerosol 1 Puff INHALATION PRN PRN Shortness Of Breath Bisacodyl 10 mg 06/21/24 12:38 Bisacodyl 10 Mg Suppository RECTAL DAILY PRN Constipation Carvedilol 6.25 mg 06/21/24 17:00 06/22/24 09:00 Carvedilol 6.25 Mg Tablet PO 6.25 mg BIDWM JAKE Administration Cyanocobalamin 500 mcg 06/22/24 09:00 06/22/24 09:00 Cyanocobalamin 500 Mcg Tablet PO 500 mcg DAILY JAKE Administration Cyclobenzaprine HCl 10 mg 06/21/24 12:38 06/22/24 12:48 Cyclobenzaprine Hcl 10 Mg Tablet PO 10 mg TID PRN Administration Muscle Spasms Docusate Sodium 100 mg 06/21/24 21:00 06/22/24 09:00 Docusate Sodium 100 Mg Capsule PO 100 mg Q12HR JAKE Administration Hydromorphone HCl 0.5 mg 06/21/24 12:38 06/21/24 15:43 Hydromorphone Hcl Inj (*Crx) 1 Mg/Ml Syr IV PUSH 0.5 mg Q2H PRN Administration Pain Rated 7-10 Cefazolin Sodium 1 gm in 50 mls @ 100 mls/hr 06/21/24 16:00 06/22/24 15:28 Ancef 1 Gm/Ns 50 Ml IVPB 100 mls/hr Q8H JAKE Administration Potassium Chloride/Dextrose/Sod Cl 1,000 mls @ 100 mls/hr 06/21/24 12:38 06/22/24 15:36 Kcl 20 Meq/D5/0.45% Sod Chl IV CONT 30 mls/hr .Q10H JAKE Administration Losartan Potassium 100 mg 06/22/24 09:00 06/22/24 09:00 Losartan Potassium 100 Mg Tablet PO 100 mg DAILY JAKE Ad
[2024-06-23] VITALS: BP 115/46; PULSE 98; RESP 18; TEMP 36.9; O2SAT 95
[2024-06-23] MEDS: ceFAZolin 1 GM/NS 50 ML 1 GM/50 ML BAG IVPB ×2 (00:05→08:35)
[2024-06-23] MEDS: CYCLOBENZAPRINE HCL 10 MG TABLET PO ×2 (00:05→05:56)
[2024-06-23 04:00] VITALS: BP 129/68; PULSE 90; RESP 18; TEMP 37.3; O2SAT 91
[2024-06-23] MEDS: TRIAMTERENE 37.5 MG/HCTZ 25 MG (MAXZIDE) TABLET 1 TAB PO (08:28)
[2024-06-23] MEDS: DOCUSATE SODIUM 100 MG CAPSULE PO (08:28)
[2024-06-23] MEDS: PRAVASTATIN SODIUM 10 MG TABLET PO (08:28)
[2024-06-23] MEDS: MIRABEGRON 25 MG ER TABLET PO (08:28)
[2024-06-23] MEDS: LOSARTAN POTASSIUM 100 MG TABLET PO (08:28)
[2024-06-23] MEDS: MAGNESIUM OXIDE 400 MG TABLET PO (08:28)
[2024-06-23] MEDS: CHOLECALCIFEROL 5,000 UNITS TABLET 5000 UNITS PO (08:28)
[2024-06-23] MEDS: CYANOCOBALAMIN 500 MCG TABLET PO (08:28)
[2024-06-23 08:29] VITALS: PULSE 88
[2024-06-23] MEDS: MULTIVITAMINS THERAPEUTIC TAB (*BKC) 1 TABLET PO (08:29)
[2024-06-23] MEDS: carvediloL 6.25 MG TABLET PO (08:29)
--- NOTE | 2024-06-23 10:49 | PCOTNOTE ---
Attempted 2 times this A.M. Patient refusing to participate in OT treatment session due to states having to much pain, unable. Patient verbalized she will try this afternoon, she needs pain medication and sleep right now . Will attempt again
[2024-06-23 11:56] VITALS: BP 102/45; PULSE 74; RESP 18; TEMP 36.6; O2SAT 100
[2024-06-23] MEDS: HYDROcodone/acetaminophen (*CRX) 10-325 MG TABLET 1 TAB PO (11:59)
--- NOTE | 2024-06-23 13:12 | WPDNEUROSGPN ---
Progress Note: A&P Assessment and Plan (1) Status post lumbar spinal arthrodesis: Code(s): Z98.1 - Arthrodesis status Status: Acute Plan -Remove hemovac drain -Discharge home today -Wound care and activity precautions reviewed at bedside Subjective Date/time seen: 06/23/24 13:12 Interval history: Doing much better today without any back or leg pain. She ambulated in halls. Voiding independently. She would like to go home. Review of Systems Review of Systems: All systems reviewed & are unremarkable except as noted in HPI and below Exam Narrative: AOx4 Full strength in legs Sensation intact Inicision c/d/i Objective Data Vital Signs Vital Signs: Vital Signs - 24 hr 06/22/24 16:00 06/22/24 17:07 06/22/24 19:34 Temperature 98.2 F 97.5 F L Pulse Rate 68 68 88 Respiratory Rate 18 18 Blood Pressure 112/60 101/24 L Pulse Oximetry 99 96 06/23/24 00:00 06/23/24 04:00 06/23/24 08:29 Temperature 98.4 F 99.2 F Pulse Rate 98 90 88 Respiratory Rate 18 18 Blood Pressure 115/46 L 129/68 Pulse Oximetry 95 91 06/23/24 11:56 Temperature 97.8 F Pulse Rate 74 Respiratory Rate 18 Blood Pressure 102/45 L Pulse Oximetry 100 Intake/Output Intake/Output: Intake & Output 06/20/24 06/21/24 06/22/24 06/23/24 23:59 23:59 23:59 23:59 Intake Total 815 2133.9 340 Output Total 370 2220 30 Balance 445 -86.1 310 Meds/Results Medications: Active Medications Generic Name Dose Route Start Last Admin Trade Name Freq PRN Reason Stop Dose Admin Hydrocodone Bitart/Acetaminophen 1 tab 06/21/24 12:38 06/23/24 11:59 Hydrocodone/Acetaminophen (*Crx) 10-325 Mg Tablet PO 1 tab Q4H PRN Administration Moderate Pain (4-6) Al Hydrox/Mg Hydrox/Simethicone 20 ml 06/21/24 12:38 Mag Hydrox/Al Hydrox/Simeth 30 Ml Udc PO Q4H PRN Indigestion/Heartburn Albuterol 2 puff 06/21/24 12:38 Albuterol Sulfate (*Sp) Aerosol 1 Puff INHALATION PRN PRN Shortness Of Breath Bisacodyl 10 mg 06/21/24 12:38 Bisacodyl 10 Mg Suppository RECTAL DAILY PRN Constipation Carvedilol 6.25 mg 06/21/24 17:00 06/23/24 08:29 Carvedilol 6.25 Mg Tablet PO 6.25 mg BIDWM JAKE Administration Cyanocobalamin 500 mcg 06/22/24 09:00 06/23/24 08:28 Cyanocobalamin 500 Mcg Tablet PO 500 mcg DAILY JAKE Administration Cyclobenzaprine HCl 10 mg 06/21/24 12:38 06/23/24 05:56 Cyclobenzaprine Hcl 10 Mg Tablet PO 10 mg TID PRN Administration Muscle Spasms Docusate Sodium 100 mg 06/21/24 21:00 06/23/24 08:28 Docusate Sodium 100 Mg Capsule PO 100 mg Q12HR JAKE Administration Hydromorphone HCl 0.5 mg 06/21/24 12:38 06/21/24 15:43 Hydromorphone Hcl Inj (*Crx) 1 Mg/Ml Syr IV PUSH 0.5 mg Q2H PRN Administration Pain Rated 7-10 Cefazolin Sodium 1 gm in 50 mls @ 100 mls/hr 06/21/24 16:00 06/23/24 09:05 Ancef 1 Gm/Ns 50 Ml IVPB Infused Q8H JAKE Infusion Potassium Chloride/Dextrose/Sod Cl 1,000 mls @ 100 mls/hr 06/21/24 12:38 06/23/24 07:50 Kcl 20 Meq/D5/0.45% Sod Chl IV CONT Not Given .Q10H JAKE Losartan Potassium 100 mg 06/22/24 09:00 06/23/24 08:28 Losartan Potassium 100 Mg Tablet PO 100 mg DAILY JAKE Administration Magnesium Oxide 400 mg 06/21/24 17:00 06/23/24 08:28 Magnesium Oxide 400 Mg Tablet PO 400 mg BID JAKE Administration Mirabegron 25 mg 06/22/24 09:00 06/23/24 08:28 Mirabegron 25 Mg Er Tablet PO 25 mg DAILY JAKE Administration Multivitamins Therapeutic 1 tablet 06/22/24 09:00 06/23/24 08:29 Multivitamins Therapeutic Tab (*Bkc) PO 1 tablet DAILY JAKE Administration Non-Formulary Medication 500 tablet 06/23/24 09:00 Calcium Carb,Gluc-Mag Gluc,Ox [Calcium Magnesium] PO 07/23/24 08:59 DAILY JAKE Ondansetron HCl 4 mg 06/21/24 12:38 Ondansetron Inj 4 Mg/2 Ml Vial IV PUSH Q8H PRN Nausea And Vomiting Pravastatin Sodium 10 mg
--- NOTE | 2024-06-24 17:01 | PM.DS ---
DS: Admitting Diagnosis Discharge Date 06/23/24 Admitting Diagnosis Lumbar spondylolisthesis, lumbar stenosis DS: Summary Hospital Course Hospital Course: the patient was admitted on June 21 for surgery; please see the operative note for more details. The patient was transferred to the floor after surgery. She worked with Physical therapy who cleared her for discharge home. On postoperative day one, she was having fairly significant back and left leg pain, and her drain output was quite high. We therefore kept her for another day. On postoperative day two, her drain output had dropped significantly, and her pain was much better controlled. She was ambulating independently and voiding without difficulty. She was tolerating p.o. intake. She was determined ready for discharge home on postoperative day two. Time Spent with Patient Time attestation: Total time spent providing and/or coordinating discharge services: Discharge Plan Discharge Consulting providers: Alberto Adam; Jose Flanagan; Talon Peters Discharging Clinician: Leana Maldonado Patient Disposition: Home, Self-Care Activity: other - see discharge instructions Diet: as tolerated Wound Care Instructions: other - see discharge instructions Discharge Instructions: INSTRUCTIONS AFTER YOUR LUMBAR FUSION ? Your incision is closed with skin glue. This will typically peel off on its own in about 14 days. ? You may shower and get your incision wet with soap and water starting on post-operative day 3 (Thursday). Do not submerge the incision under water (like in a bathtub or swimming pool) for 6 weeks after surgery. Never apply ointments or lotions to the incision. ? The incision should be checked daily. Notify the office if there is drainage, redness, or if you have fever with a temperature of over 101 degrees. ? You are encouraged to walk as much as comfortable, with assistance as needed. For example, it may be beneficial to walk short distances hourly during the waking hours and gradually increase walking during your recovery period. Fatigue can be common. ? Avoid any bending, heavy lifting, or twisting movements. ? You have an [id number]-pound lift restriction until further advised by your physician (a gallon of milk weighs eight pounds). ? Make frequent position changes, avoiding long periods of sitting. Try not to sit more than 60 minutes at a time. ? You may engage in sexual activity in two weeks as tolerated. ? No housework, especially vacuuming, making beds, or doing laundry until seen in the office. ? You may walk stairs carefully. ? Minimize long car rides for the first two weeks. You may resume driving when you feel comfortable; however, you may not drive if still taking narcotic pain medications. ? You should start with Tylenol 1000mg every 6 hours for pain first. If the Tylenol is not effective, you may then take oxycodone. ? The physician may order pain medication and/or muscle relaxers. As time goes by, you should require less of these. Always take your medication as ordered, and only if needed. If you take more than prescribed, it will not be refilled early. If you feel you require narcotic medication refill, kindly give the office a 72-hour notice. No refills are given over the weekend. ? Avoid use of anti-inflammatory medications (like Ibuprofen, Aleve, Advil, Motrin) for up to three months following fusion surgery. Use of these medications may slow healing. ? Resume your usual diet. Constipation is a common problem postop. You may use any over the counter laxative, or stool softener. Always follow the bottle directions. ? Use of nicotine products should be stopped completely. Smoking can slow the healing process significantly. It can also increase the chance for developing postop pneumonias and other complications. Please avoid use of all nicotine products for at least three months after spine surgery. FOLLOW-UP
== END 2024-06-23 16:00 | disposition home or self-care (01) | DRG 460 ==
LOC: ANH2MED 12:51
PROVIDERS: Admitting Provider Neurological Surgery; PCP Internal Medicine; Visit Provider Neurological Surgery
PROC: 0SG00AJ Fusion of Lumbar Vertebral Joint with Interbody Fusion Device, Posterior Approach, Anterior Column, Open Approach (ICD-10-PCS; CPT 22612; principal; 2024-06-21 07:30)
DX: M43.16 Spondylolisthesis, lumbar region (principal); Z68.42 Body mass index [BMI] 45.0-49.9, adult; M47.817 Spondylosis without myelopathy or radiculopathy, lumbosacral region; M48.07 Spinal stenosis, lumbosacral region; M51.37 Other intervertebral disc degeneration, lumbosacral region; J45.909 Unspecified asthma, uncomplicated; I10 Essential (primary) hypertension; E78.5 Hyperlipidemia, unspecified; E66.01 Morbid (severe) obesity due to excess calories; Z79.82 Long term (current) use of aspirin; Z87.891 Personal history of nicotine dependence
CPT/HCPCS: 36415; 85027; 85055; 97161; 97165; 97530; 97535; 99199; A9270; C1713; J0690; J1100; J1170; J2250; J2371; J2405; J2704; J3010; J3480; J7120

== ENCOUNTER 2024-07-26 15:45 | Outpatient (CLI) | payer MEDICARE, SELFPAY ==
--- NOTE | ~2024-07-26 | XR_ITS ---
Lumbosacral Spine: AP and lateral views Clinical History: Spinal stenosis COMPARISON: 04/07/2023 Findings: The normal lordotic curve is maintained. Status post interval posterior and interbody fusio n from L4 through S1. There is advanced degenerative disc narrowing at L1-L2. There is advanced facet arthropathy from L2 to L3. The sacroiliac joints are normally outlined. Impression: L4-S1 fusion, as above. Degenerative spondylosis, as above. Reviewed, dictated and finalized at location M. Impression: L4-S1 fusion, as above. Degenerative spondylosis, as above.
== END 2024-07-26 15:46 | disposition home or self-care (01) ==
PROVIDERS: PCP Internal Medicine; Visit Provider Neurological Surgery
DX: M48.07 Spinal stenosis, lumbosacral region (principal); M43.16 Spondylolisthesis, lumbar region; M47.897 Other spondylosis, lumbosacral region; Z98.1 Arthrodesis status
CPT/HCPCS: 72100

== ENCOUNTER 2024-08-23 14:37 | Outpatient (CLI) | payer MEDICARE, SELFPAY ==
--- NOTE | ~2024-08-23 | MM_ITS ---
EXAMINATION: MM screening cheng BI w marc HISTORY: Screening TECHNIQUE: Craniocaudal and mediolateral oblique 3-D tomosynthesis images were obtained and synthetic 2-D images were generated. CAD analysis was submitted and interpreted. COMPARISON: Comparison to multiple prior studies sequentially, with oldest reviewed study dated 07/17. BREAST PARENCHYMAL COMPOSITION: Not dense: There are scattered areas of fibroglandular density. FINDINGS: There is a developing focal asymmetry in the lower inner quadrant of the left breast, anter ior third. The right breast is stable without evidence for malignancy. IMPRESSION: 1. Developing left breast asymmetry. 2. Additional mammographic views and possible breast ultrasound are recommended. BI-RADS Category 0: Incomplete: Needs additional imaging evaluation. Reviewed, dictated and finalized at location B. IMPRESSION: 1. Developing left breast asymmetry. 2. Additional mammographic views and possible breast ultrasound are recommended . BI-RADS Category 0: Incomplete: Needs additional imaging evaluation.
== END 2024-08-23 14:38 | disposition home or self-care (01) ==
PROVIDERS: PCP Internal Medicine; Visit Provider Internal Medicine
DX: Z12.31 Encounter for screening mammogram for malignant neoplasm of breast (principal)
CPT/HCPCS: 77063; 77067

== ENCOUNTER 2024-09-07 11:20 | Outpatient (CLI) | payer MEDICARE, SELFPAY ==
--- NOTE | ~2024-09-07 | XR_ITS ---
Right Knee Technique: AP, lateral, and sunrise views were obtained. Clinical History: Pain Findings: No fracture or dislocation is seen. Osseous alignment is anatomic. Moderate tricompartmenta l degenerative spurring present. Soft tissues are unremarkable. No joint effusion is seen. Impression: Moderate tricompartmental degenerative change. Reviewed, dictated and finalized at location . REPAIRER Impression: Moderate tricompartmental degenerative change.
--- NOTE | ~2024-09-07 | XR_ITS ---
Left Knee Technique: AP, lateral, and sunrise views were obtained. Clinical History: Pain Findings: No fracture or dislocation is seen. Moderate to advanced tricompartmental osteoarthritis pr esent, with extensive osteophyte formation. There is narrowing of the patellofemoral compartment edil cular. Chondrocalcinosis of the menisci noted. No joint effusion is seen. Impression: Moderate to advanced tricompartmental osteoarthritis, as above.. Reviewed, dictated and finalized at location M. 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
== END 2024-09-07 11:21 | disposition home or self-care (01) ==
LOC: ANHIMG 11:21
PROVIDERS: PCP Internal Medicine; Visit Provider Neurological Surgery
DX: M17.0 Bilateral primary osteoarthritis of knee (principal)
CPT/HCPCS: 73562

== ENCOUNTER 2024-10-12 15:36 | Outpatient (CLI) | payer MEDICARE, SELFPAY ==
--- NOTE | ~2024-10-12 | CT_ITS ---
EXAMINATION:CT lung screening DATE: 10/12/2024 15:51 INDICATION: Personal history of nicotine dependence. Smoker who quit 10 years ago with 39 pack year h istory. TECHNIQUE: Computed tomography (CT) of the chest was performed without intravenous contrast. Automate d exposure control and iterative reconstruction technique were employed. The dose-length product (DLP ) was 242.07 mGy-cm. COMPARISON: Chest CT 09/10/2023 FINDINGS: There is mild scarring at the lung apices. Calcified pulmonary nodules are consistent with old granulomatous disease. There is mild scarring in paraspinal right lower lobe. No pleural effusion . Cardiomegaly is noted. No pericardial effusion. There is an 11 mm nodule in right thyroid lobe, lik brenda not clinically significant. There are cysts in the liver measuring up to 3.7 cm. There is a total right shoulder arthroplasty. There is severe thoracic spondylosis. IMPRESSION: 1. Lung-RADS category 2: Benign appearance or behavior. Continue annual screening with noncontrast lo w-dose chest CT in 12 months. Reviewed, dictated and finalized at location A. 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 Lung-RADS category 2: Benign appearance or behavior. Continue annual screeni ng with noncontrast low-dose chest CT in 12 months.
== END 2024-10-12 15:37 | disposition home or self-care (01) ==
LOC: CHSIMG 15:38
PROVIDERS: PCP Internal Medicine; Visit Provider Internal Medicine
DX: Z12.2 Encounter for screening for malignant neoplasm of respiratory organs (principal); Z87.891 Personal history of nicotine dependence
CPT/HCPCS: 71271

== ENCOUNTER 2024-11-09 14:07 | Outpatient (CLI) | payer MEDICARE, SELFPAY ==
--- NOTE | ~2024-11-09 | XR_ITS ---
XR knee RT min 4V Ordering provider: Saad Salguero MD History: . M25.561 - Pain in right knee . Comparison: None. FINDINGS: BONES: No acute fracture or dislocation. JOINT SPACES: Severe narrowing of the medial compartment. Marginal osteophytes in the patella with er osive changes in the medial aspect of the patella. SOFT TISSUES: Normal. IMPRESSION: No acute osseous abnormality right knee. Severe osteoarthritic changes of the patellofemoral joint. Reviewed, dictated and finalized at location A. R GLOST KILN
--- NOTE | ~2024-11-09 | XR_ITS ---
XR knee LT min 4V Ordering provider: Saad Salguero MD History: . M25.562 - Pain in left knee . Comparison: None. FINDINGS: BONES: No acute fracture or dislocation. JOINT SPACES: Chondrocalcinosis. Marginal osteophytes in the knee and patella. Severe narrowing of th e lateral compartment of the patellofemoral joint. SOFT TISSUES: Normal. IMPRESSION: No acute osseous abnormality left knee. Severe osteoarthritic changes. Chondrocalcinosis. Reviewed, dictated and finalized at location A. 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
== END 2024-11-09 14:08 | disposition home or self-care (01) ==
PROVIDERS: PCP Internal Medicine; Visit Provider Orthopaedic Surgery
DX: M25.561 Pain in right knee (principal); M25.562 Pain in left knee
CPT/HCPCS: 73564

== ENCOUNTER 2025-02-22 15:08 | Outpatient (CLI) | payer MEDICARE, SELFPAY ==
--- NOTE | ~2025-02-22 | XR_ITS ---
XR hip BI wo pelvis Ordering provider: Amol Carter MD History: . B/L HIP PAIN, chronic x 1 year, nki . Comparison: None. FINDINGS: BONES: No acute fracture or dislocation. Postoperative changes in the lower lumbar area HIP JOINT SPACES: Slight narrowing of the joint space bilaterally which may indicate early osteoarthr itic changes.. SACROILIAC JOINT SPACES/LUMBAR SPINE: The sacroiliac joint spaces are normal. Mild degenerative izaguirre es of the visualized lower lumbar spine. PUBIC SYMPHYSIS: Pubic symphysitis. SOFT TISSUES: Normal. IMPRESSION: No acute osseous abnormality of the bilateral hips and pelvis. Mild bilateral hip osteoarthritic changes. Reviewed, dictated and finalized at location A.
--- OUTSIDE RECORDS SUMMARY | 2025-02-22 17:09 | XMS_ITS | Clinical Summary ---
Author Organization [facility] Address [address] [place] [address] Care Team Providers Care Lasting Room Supervisor Name Role Phone Amol Morgan MD Primary Care Provider [phone] Allergies Active Allergy Reactions Criticality Noted Date Comments Meperidine Hallucinations 12/02/2024 Oxycodone GI Upset 12/02/2024 Medications carvedilol 6.25 MG tablet Take 2 tablets (12.5 mg total) by mouth 2 (two) times a day. 1 Active celecoxib 200 MG capsule Take 1 capsule (200 mg total) by mouth nightly at bedtime. 1 Active pravastatin 10 MG tablet Take 1 tablet (10 mg total) by mouth daily. 1 Active acetaminophen 500 MG tablet Take 1 tablet (500 mg total) by mouth every 6 (six) hours as needed for Pain. Active Cholecalciferol (VITAMIN D3) 50 MCG (2000 UT) Tab Take 1 tablet (50 mcg total) by mouth daily. Active magnesium oxide 250 MG tablet Take 2 tablets (500 mg total) by mouth daily. Active vitamin B-12 1000 MCG tablet Take 1 tablet (1,000 mcg total) by mouth daily. Active glucosamine-cho ndroitin 500-400 MG Cap Take 2 capsules by mouth daily. Active calcium carb-cholecalci ferol 600-400 MG-UNIT Tab tablet 1 tablet daily. Acti ve traMADol 50 MG tabletIndicatio ns:Chronic Pain Take 1 tablet (50 mg total) by mouth every 8 (eight) hours as needed for Pain. Indications: Chronic Pain 30 tablet 2 Active albuterol sulfate HFA 108 (90 Base) MCG/ACT inhaler inhale 2 puffs (180 mcg) by inhalation route every 6-8 hours as needed Active losartan (COZAAR) 100 MG tablet take 1 tablet (100 mg) by oral route once daily Active MYRBETRIQ 25 MG 24 hr tablet Take 1 tablet (25 mg total) by mouth daily. Active aspirin 81 MG chewable tablet Chew 1 tablet (81 mg total) by mouth daily. 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 08/23/2021 03/07/2022 Rotator cuff arthropathy of right shoulder 07/03/2021 03/07/2022 Rotator cuff syndrome 2021 Encounters Date Type Department Care Team Description 12/02/2024 5:12 PM EM PHYSICIAN - 12/02/2024 6:20 PM EM PHYSICIAN Emergency [facility] [address] [place] [address] Kain Espinal MD Knee Pain Discharge Disposition: Home or Self Care (Routine Discharge) 12/02/2024 Travel from Last 3 Months Family History Medical History Relation Comments Cancer Father lung, brain Diabetes Father Emphysema Father Hypertension Father No Known Problems Mother Cancer Sister 1 breast Diabetes Sister 2 Hypertension Sister 2 Relation Status Comments Father Mother Sister 1 Alive Sister 2 Alive Social History Tobacco Use Types Packs/Day Years Used Date Smoking Tobacco: Former Cigarettes Q uit: 2012 Smokeless Tobacco: Never Tobacco Cessation:Counseling Given: Not Answered Alcohol Use Standard Drinks/Week Comments Yes 0 (1 standard drink = 0.6 oz pur e alcohol) seldom Comments No Sex and Gender Information Value Date Recorded Sex Assigned at Female 12/02/2024 5:26 PM EM PHYSICIAN Legal Sex Female 11:58 AM CDT Gender Identity Not on file Sexual Orientation Not on file Last Filed Vital Signs Vital Sign Reading Time Taken Comments Blood Pressure 150/48 12/02/2024 5:03 PM EM PHYSICIAN Pulse 58 12/02/2024 5:03 PM EM PHYSICIAN Temperature 36 C (96.8 F) 12/02/2024 5:03 PM EM PHYSICIAN Respiratory Rate 16 12/02/2024 5:03 PM EM PHYSICIAN Oxygen Saturation 98% 12/02/2024 5:03 PM EM PHYSICIAN Inhaled Oxygen Concentration - - Weight 94.8 kg (209 lb) 12/02/2024 5:03 PM EM PHYSICIAN Height 149.9 cm (4' 11 ) 12/02/2024 5:03 PM EM PHYSICIAN Body Mass Index 42.21 12/02/2024 5:03 PM EM PHYSICIAN Plan of Treatment Health Maintenance Due Date Last Done Comments Colorectal Cancer Screening Colonoscopy (10 Years) 1956 Hepatitis C 1974 DTaP, Tdap and Td Vaccines ( 1 - Tdap) 1975 RSV Immunization or 60+ Years (1 - Risk 60-74 years 1-dose series) 2016 Pneumococcal Vaccine: 50+ Years (2 of 2 - PPSV23) 08/03/2018 08/03/2017 Annual Medicare Wellness Visit 2021 Dexa Scan (General) 2021 COVID-19 Vaccine (3 - 2023-2 5 season) 2024 01/29/2021, 01/08/2021 Mammogram Screening 09/21/2026 09/21/2024 Zoster Vaccines Completed 07/18/2020, 05/15/2020 Meningococcal B Vaccine Aged Out No l onger eligible based on patient's age to complete this topic Meningococcal Vaccine Aged Out No toi taylor eligible based on patient's age to complete this topic RSV Immunizations Under 20 Months Aged Out No longer eligible b ased on patient's age to complete this topic Medical Devices Implanted Type Area Forester Silviculture Device Identifier Shelf Expiration Date Model / Serial / Lot Cup Humeral Standard Delta Xtend Depuy - [id number] Implanted:Qty : 1 on 08/22/2021 by Umair Coyne MD at [facility] Humeral Right: Shoulder DEPUY [id number] 01/30/2026 [id number] / / [id number] Screw Locking Depuy Delta Xtend Lg 36mm - [id number] Implanted:Qty : 1 on 08/22/2021 by Umair Coyne MD at [facility] Screw Right: Shoulder DEPUY [id number] 05/01/2026 [id number] / / [id number] Screw Locking Depuy Delta Xtend Lg 30mm - [id number] Implanted:Qty : 1 on 08/22/2021 by Umair Coyne MD at [facility] Screw Right: Shoulder DEPUY [id number] 05/01/2026 [id number] / / [id number] Screw Non Locking Depuy Delta Xtend Lg 18mm - [id number] Implanted:Qty : 1 on 08/22/2021 by Umair Coyne MD at [facility] Screw Right: Shoulder DEPUY [id number] 01/30/2026 [id number] / / [id number] Screw Locking Depuy Delta Xtend Lg 24mm - [id number] Implanted:Qty : 1 on 08/22/2021 by Umair Coyne MD at [facility] Screw Right: Shoulder DEPUY [id number] 05/01/2026 [id number] / / [id number] Metaglene Depuy Delta Xtend - [id number] Implanted:Qty : 1 on 08/22/2021 by Umair Coyne MD at [facility] Shoulder Components Right: Shoulder DEPUY [id number] 05/01/2026 [id number] / / [id number] Epiphysis Delta Xtend Depuy Size 1 Right - [id number] Implanted:Qty : 1 on 08/22/2021 by Umair Coyne MD at [facility] Shoulder Components Right: Shoulder DEPUY [id number] 08/01/2025 [id number] / / [id number] Delta Xtend Lateralized Glenosphere +2 38 Standard Implanted:Qty : 1 on 08/22/2021 by Umair Coyne MD at [facility] Right: Shoulder [id number] 06/01/2026 [id number] / / [id number] Global Unite Porocoat Standard Stem Implanted:Qty : 1 on 08/22/2021 by Umair Coyne MD at [facility] Right: Shoulder [id number] 06/01/2031 [id number] / / [id number] Explanted Type Area Forester Silviculture Device Identifier Shelf Expiration Date Model / Serial / Lot Drill Bit Depuy 2.5 - [id number] Explanted:Qty: 1 on 08/22/2021 at [facility] Drill Right: Shoulder DEPUY [id number] / / Procedures Procedure Name Priority Date/Time Associated Diagnosis Comments XR KNEE RT 3V STAT 12/02/2024 5:42 PM EM PHYSICIAN MG DIAG W ISAAC LT DIGI Routine 09/21/2024 9:42 AM EM PHYSICIAN Abnormal mammogram from Last 3 Months or Most Recently Relevant to Health Maintenance Results * XR KNEE RT 3V (12/02/2024 5:42 PM EM PHYSICIAN) Anatomical Region Laterality Modality Knee Radiographic Essie ging 12/02/2024 6:01 PM EM PHYSICIAN Impressions 12/02/2024 6:02 PM EM PHYSICIAN IMPRESSION: 1) Chronic changes of degenerative osteoarthritis. No evidence of acute fracture. Ordered By: KAIN ESPINAL Interpreted By: Yeison Crowley MD, 12/02/2024 6:01 PM Narrative 12/02/2024 6:02 PM EM PHYSICIAN [address] [place] [address] Examination: XR KNEE RT 3V Exam time: 12/02/2024 5:35 PM Clinical history: Knee pain Comparison: None Technique: AP, lateral and sunrise views Findings: No acute soft tissue abnormality. No joint effusion. No evidence of acute fracture or focal lytic bone destructive lesion. There are chronic changes of degenerative osteoarthritis involving all 3 compartments, worst in medial and patellofemoral compartments. Procedure Note Yeison Crowley MD - 12/02/[address] [place] [address] Examination: XR KNEE RT 3V Exam time: 12/02/2024 5:35 PM Clinical history: Knee pain Comparison: None Technique: AP, lateral and sunrise views Findings: No acute soft tissue abnormality. No joint effusion. No evidenceof acute fracture or focal lytic bone destructive lesion. There arechronic changes of degenerative osteoarthritis involving all 3compartments, worst in medial and patellofemoral compartments. IMPRESSION: 1) Chronic changes of degenerative osteoarthritis. No evidence of acutefracture. Ordered By: KAIN ESPINAL Interpreted By: Yeison Crowley MD, 12/02/2024 6:01 PM us Kain Espinal MD GENERAL IMAGING Final Result * MG DIAG W ISAAC LT DIGI (09/21/2024 9:42 AM EM PHYSICIAN) Anatomical Region Laterality Modality Breast Left Mammography, Rad iographic Imaging 09/21/2024 10:2 2 AM EM PHYSICIAN Impressions 09/21/2024 10:29 AM EM PHYSICIAN IMPRESSION: Opacity identified at screening is judged probably benign on additional imaging. Follow-up in six months is recommended. Recommendation: 1: Follow-up diagnostic mammogram Left in 6 Months 2: Ultrasound Left in 6 months, as needed Overall assessment: ACR BI-RADS Category 3 - Probably benign. Return for Routine Follow-Up: No Ordered By: AMOL MORGAN Interpreted By: Sotero Garvin MD, 09/21/2024 10:22 AM Narrative 09/21/2024 10:29 AM EM PHYSICIAN [address] [place] [address] Examination: Digital left diagnostic mammogram with CAD. [id number] Clinical history: Follow-up, abnormal screening mammogram. Comparison: 08/23/2024 ([facility]). Technique: True lateral and spot compression CC and MLO left digital mammograms. The exam was interpreted with the use of a computer-aided detection (CAD) system. Additional 3-D Tomosynthesis images were acquired. Tissue density: The breast tissue contains scattered fibroglandular densities. Findings: The patient presented for additional diagnostic imaging to further evaluate the focal asymmetry identified at screening. The finding in question changes in configuration on the true lateral view. It is better appreciated under spot compression, lying near the 6:00 position projecting approximately 4.5 cm deep to the nipple. It is of low-attenuation and appears generally ovoid and smoothly marginated measuring approximately 7 x 4 mm. There is no associated architectural distortion or microcalcification. Examination: Left breast ultrasound. Technique:Grayscale and color Doppler images. Findings: Survey was performed from the 5:00-8:00 positions encompassing the broad region of interest. At the 6:00 position 4 cm from the nipple there is suspected focal fibrocystic change versus clustered microcysts measuring approximately 8 x 8 x 4 mm judged concordant with the mammographic finding. [place] appearing tissue architecture is otherwise demonstrated. No other sonographically discrete finding is identified. The overall findings are judged probably benign and considered safe to follow. Left mammography in six months, with ultrasound as needed, is recommended for surveillance. These findings were discussed with the patient. us Amol Morgan MD MAMMO Final Result from Last 3 Months or Most Recently Relevant to Health Maintenance Insurance [employer] Advance Directives * Full Code (Latest Code Status on File) Date Activated Date Inactivated Comments 08/22/2021 2:07 PM 08/23/2021 5:49 PM Care Teams Lasting Room Supervisor Relationship Specialty Start Date End Date Amol Morgan MD [address] [place] [address] PCP - General INTERNAL MEDICINE 07/03/21
== END 2025-02-22 15:09 | disposition home or self-care (01) ==
PROVIDERS: PCP Internal Medicine; Visit Provider Internal Medicine
DX: M25.552 Pain in left hip (principal); M25.551 Pain in right hip; M16.0 Bilateral primary osteoarthritis of hip
CPT/HCPCS: 73521

== ENCOUNTER 2025-05-03 07:36 | Outpatient (CLI) | payer MEDICARE, MEDICAID, SELFPAY ==
--- NOTE | ~2025-05-03 | US_ITS ---
EXAMINATION: US venous doppler LE RT DATE: 05/03/2025 08:09 INDICATION: Right lower leg pain and swelling TECHNIQUE: Grayscale ultrasound images without and with compression and Doppler ultrasound images of the right lower extremity veins were obtained. COMPARISON: None. FINDINGS: The visualized portions of right common femoral vein, profunda (deep) femoral vein, femoral vein, pop liteal vein, peroneal trunk, peroneal veins, gastrocnemius vein and greater saphenous vein outflow ar e patent. 4.3 x 2.3 x 1.6 cm Lin's cyst at the right popliteal fossa. Flow is identified in the reg ion of the posterior tibial tibial veins but which were too small to definitively assess for compress ibility. IMPRESSION: 1. No evident deep venous thrombosis in the right lower limb with the posterior tibial veins of the calf too small in caliber to definitively assessed for compressibility. Reviewed, dictated and finalized at location B. IMPRESSION: 1. No evident deep venous thrombosis in the right lower limb with the posterio r tibial veins of the calf too small in caliber to definitively assessed for co mpressibility.
== END 2025-05-03 07:37 | disposition home or self-care (01) ==
LOC: CHSIMG 07:38
PROVIDERS: PCP Internal Medicine; Visit Provider Internal Medicine
DX: M79.89 Other specified soft tissue disorders (principal)
CPT/HCPCS: 93971

== ENCOUNTER 2025-06-17 11:37 | Outpatient (CLI) | payer MEDICARE, MEDICAID, SELFPAY ==
--- NOTE | ~2025-06-17 | MR_ITS ---
MRI of the cervical spine Clinical History: Pain radiating to upper extremities Technique: Axial T2-weighted and gradient images, and sagittal T1-weighted, T2-weighted, and STIR andrew ges were acquired. Findings: No acute fracture seen. There is 3 mm anterolisthesis of C3 over C4. There is 2 mm anteroli sthesis of C4 over C5. No suspicious bone marrow signal abnormality seen. At C2-C3, there is no significant disc bulge or herniation. No spinal canal stenosis, cord compressio n, or neural foraminal narrowing. At C3-C4, there is minimal disc bulge. No spinal canal stenosis, cord compression, or neural foramina l narrowing. At C4-C5, there is minimal disc bulge. No spinal canal stenosis, cord compression, or neural foramina l narrowing. At C5-C6, there is moderate degenerative disc narrowing with minimal disc bulge. No definite canal st enosis, cord compression, or right neural foraminal narrowing. Possible mild left neural foraminal na rrowing. At C6-C7, there is mild degenerative disc narrowing. No definite disc bulge or herniation. No spinal canal stenosis, cord compression, or neural foraminal narrowing. No abnormal signal seen in the spinal cord. Paravertebral soft tissues are unremarkable. Impression: Mild degenerative spondylosis, as above. 3 mm anterolisthesis of C3 over C4. 2 mm anterolisthesis of C4 over C5. Reviewed, dictated and finalized at [facility]. Impression: Mild degenerative spondylosis, as above. 3 mm anterolisthesis of C3 over C4. 2 mm anterolisthesis of C4 over C5.
--- OUTSIDE RECORDS SUMMARY | 2025-06-17 11:40 | XMS_ITS | Clinical Summary ---
Author Organization [facility] Address [address] [place] [address] Care Team Providers Care Wrapper Operator Name Role Phone Elisa Morgan MD Primary Care Provider [phone] Allergies Active Allergy Reactions Criticality Noted Date [...] Encounters Date Type Department Care Team Description 06/16/2025 12:55 PM CDT Hospital Encounter [facility] [address] [place] [address] Walter Vargas, PT Babs White, Sasha Santacruz, MAINTENANCE SHOP TECHNICIAN Low Back Pain 06/16/2025 Travel 06/13/2025 4:25 PM CDT - 06/13/2025 11:59 PM CDT Hospital Encounter [facility] [address] [place] [address] Walter Vargas, PT Babs White, Sasha Santacruz, MAINTENANCE SHOP TECHNICIAN Low Back Pain Discharge Disposition: Home or Self Care (Routine Discharge) 06/13/2025 Travel 06/09/2025 8:56 AM CDT - 06/09/2025 11:59 PM CDT Hospital Encounter [facility] [address] [place] [address] Walter Vargas, PT Babs White, Torsten Mccauley, PT Back Pain; Balance Problem; Weakness Discharge Disposition: Home or Self Care (Routine Discharge) 06/09/2025 Travel 06/07/2025 4:45 PM CDT - 06/07/2025 11:59 PM CDT Hospital Encounter [facility] [address] [place] [address] Walter Vargas, PT Babs White, Sasha Santacruz, MAINTENANCE SHOP TECHNICIAN Low Back Pain Discharge Disposition: Home or Self Care (Routine Discharge) 06/07/2025 Travel 06/01/2025 1:45 PM CDT - 06/01/2025 11:59 PM CDT Hospital Encounter [facility] [address] [place] [phone] Walter Vargas, PT Babs White, Sasha Santacruz, MAINTENANCE SHOP TECHNICIAN Back Pain Discharge Disposition: Home or Self Care (Routine Discharge) 05/31/2025 5:00 PM CDT - 05/31/2025 11:59 PM CDT [facility] [address] [place] [address] Walter Vargas, PT Babs White, Torsten Mccauley, PT Back Pain; Balance Problem; Weakness Discharge Disposition: Home or Self Care (Routine Discharge) 05/31/2025 Travel 05/25/2025 1:40 PM CDT - 05/25/2025 11:59 PM CDT [facility] [address] [place] [address] Walter Vargas, PT Babs White, Torsten Mccauley, PT Back Pain; Sacral Pain; Knee Pain Discharge Disposition: Home or Self Care (Routine Discharge) 05/25/2025 Travel 05/17/2025 3:00 PM CDT - 05/17/2025 11:59 PM CDT [facility] [address] [place] [address] Walter Vargas, PT Back Pain Discharge Disposition: Home or Self Care (Routine Discharge) 05/17/2025 Travel 04/21/2025 8:30 AM CDT - 04/21/2025 11:59 PM CDT [facility] [address] [place] [address] Torsten Green, PT Back Pain; Balance Problem Discharge Disposition: Home or Self Care (Routine Discharge) 04/21/2025 Travel 04/19/2025 3:19 PM CDT - 04/19/2025 11:59 PM CDT Hospital Encounter [facility] [address] [place] [address] Torsten Green, PT Back Pain; Sacral Stn/ Spn Discharge Disposition: Home or Self Care (Routine Discharge) 04/19/2025 Travel 04/14/2025 8:13 AM CDT - 04/14/2025 11:59 PM CDT Hospital Encounter [facility] [address] [place] [address] Walter Vargas, PT Torsten Green, PT Sacral Stn/ Spn ; Back Pain Discharge Disposition: Home or Self Care (Routine Discharge) 04/14/2025 Travel 04/12/2025 2:57 PM CDT - 04/12/2025 11:59 PM CDT Hospital Encounter [facility] [address] [place] [address] Walter Vargas, PT Mindy Dillard, MAINTENANCE SHOP TECHNICIAN Lumbar Pain Discharge Disposition: Home or Self Care (Routine Discharge) 04/12/2025 Travel 04/07/2025 10:20 AM CDT - 04/07/2025 11:59 PM CDT Hospital Encounter [facility] [address] [place] [address] Walter Vargas, PT Babs White MD Back Pain Discharge Disposition: Home or Self Care (Routine Discharge) 04/07/2025 Travel 04/05/2025 1:50 PM CDT - 04/05/2025 11:59 PM CDT Hospital Encounter [facility] [address] [place] [address] Walter Vargas, PT Back Pain Discharge Disposition: Home or Self Care (Routine Discharge) 04/05/2025 Travel 03/31/2025 11:41 AM CDT - 03/31/2025 11:59 PM CDT Hospital Encounter [facility] [address] [place] [address] Torsten Green, PT Fuchs, Mindy R, MAINTENANCE SHOP TECHNICIAN Back Pain Discharge Disposition: Home or Self Care (Routine Discharge) 03/31/2025 Travel 03/23/2025 7:24 AM CDT - 03/23/2025 11:59 PM CDT Hospital Encounter [facility] [address] [place] [address] Torsten Green, PT Sacral Stn/ Spn ; Back Pain Discharge Disposition: Home or Self Care (Routine Discharge) 03/22/2025 12:27 PM CDT - 03/22/2025 11:59 PM CDT Hospital Encounter [facility] [address] [facility] [place] [address] Elisa Morgan MD Discharge Disposition: Home or Self Care (Routine Discharge) 03/22/2025 Travel from Last 3 Months Family History [...] Sex Assigned at Female 12/02/2024 5:26 PM MECHANICAL ENGINEERING ADVISOR Legal Sex Female 11:58 AM CDT Gender Identity Not on file Sexual Orientation Not on file Last Filed Vital Signs Vital Sign Reading Time Taken Comments Blood Pressure 150/48 12/02/2024 5:03 PM MECHANICAL ENGINEERING ADVISOR Pulse 58 12/02/2024 5:03 PM MECHANICAL ENGINEERING ADVISOR Temperature 36 C (96.8 F) 12/02/2024 5:03 PM MECHANICAL ENGINEERING ADVISOR Respiratory Rate 16 12/02/2024 5:03 PM MECHANICAL ENGINEERING ADVISOR Oxygen Saturation 98% 12/02/2024 5:03 PM MECHANICAL ENGINEERING ADVISOR Inhaled Oxygen Concentration - - Weight 94.8 kg (209 lb) 12/02/2024 5:03 PM MECHANICAL ENGINEERING ADVISOR Height 149.9 cm (4' 11) 12/02/2024 5:03 PM MECHANICAL ENGINEERING ADVISOR Body Mass Index 42.21 12/02/2024 5:03 PM MECHANICAL ENGINEERING ADVISOR Plan of Treatment Upcoming Encounters Date Type Department Care Team (Late st Contact Info) Description 06/20/2025 1:45 PM CDT Appointment [facility] [address] [place] [address] Walter Vargas, PT [address] [place] [address] Babs White MD [address] [phone] Sasha Hobson PTA 06/23/2025 7:00 AM CDT Appointment [facility] [address] [place] [address] Walter Vargas, PT [address] [place] [address] Babs White MD [address] [phone] Sasha Hobson, FLOR Health Maintenance Due Date Last Done Comments [...] 5 season) 2024 01/29/2021, 01/08/2021 Mammogram Screening 03/22/2027 03/22/2025, 09/21/2024 Zoster Vaccines Completed 07/18/2020, 05/15/2020 Meningococcal B Vaccine Aged Out No l onger eligible based on patient's age to complete this topic Meningococcal Vaccine Aged Out No toi taylor eligible based on patient's age to complete this topic RSV Immunizations Under 20 Months Aged Out No longer eligible b ased on patient's age to complete this topic Medical Devices Implanted Type Area Proof Clerk Device Identifier Shelf Expiration Date Model / Serial / Lot Cup Humeral Standard Delta Xtend Depuy - [id number] Implanted:Qty : 1 on 08/22/2021 by Umair Coyne MD at [facility] Humeral Right: Shoulder DEPUY [id number] 01/30/2026 [id number] / / [id number] Screw Locking Depuy Delta Xtend Lg 36mm - [id number] Implanted:Qty : 1 on 08/22/2021 by Umair Coyne MD at [facility] Screw Right: Shoulder DEPUY [id number] 05/01/2026 [id number] / / [id number] Screw Locking Depuy Delta Xtend Lg 30mm - [id number] Implanted:Qty : 1 on 08/22/2021 by Umair Coyne MD at [facility] Screw Right: Shoulder DEPUY [id number] 05/01/2026 [id number] / / [id number] Screw Non Locking Depuy Delta Xtend Lg 18mm - [id number] Implanted:Qty : 1 on 08/22/2021 by Umair Coyne MD at [facility] Screw Right: Shoulder DEPUY [id number] 01/30/2026 [id number] / / [id number] Screw Locking Depuy Delta Xtend Lg 24mm - [id number] Implanted:Qty : 1 on 08/22/2021 by Umair Coyne MD at [facility] Screw Right: Shoulder DEPUY [id number] 05/01/2026 [id number] / / [id number] Metaglene Depuy Delta Xtend - [id number] Implanted:Qty : 1 on 08/22/2021 by Umair Coyne MD at [facility] Shoulder Components Right: Shoulder DEPUY [id number] 05/01/2026 [id number] / / [id number] Epiphysis Delta Xtend Depuy Size 1 Right - [id number] Implanted:Qty : 1 on 08/22/2021 by Umair Coyne MD at [facility] Shoulder Components Right: Shoulder DEPUY [id number] 08/01/2025 [id number] / / [id number] Delta Xtend Lateralized Glenosphere +2 38 Standard Implanted:Qty : 1 on 08/22/2021 by Umair Coyne MD at [facility] Right: Shoulder [id number] 06/01/2026 [id number] / / [id number] Global Unite Porocoat Standard Stem Implanted:Qty : 1 on 08/22/2021 by Umair Coyne MD at [facility] Right: Shoulder [id number] 06/01/2031 [id number] / / [id number] Explanted Type Area Proof Clerk Device Identifier Shelf Expiration Date Model / Serial / Lot Drill Bit Depuy 2.5 - [id number] Explanted:Qty: 1 on 08/22/2021 at [facility] Drill Right: Shoulder DEPUY [id number] / / Procedures Procedure Name Priority Date/Time Associated Diagnosis Comments MG DIAGNOSTIC LT DIGI Routine 03/22/2025 1:19 PM CDT Abnormal screening mammogram from Last 3 Months Results * MG DIAGNOSTIC LT DIGI (03/22/2025 1:19 PM CDT) Anatomical Region Laterality Modality Breast Left Mammography, Rad iographic Imaging 03/22/2025 1:21 PM CDT Impressions 03/22/2025 1:37 PM CDT IMPRESSION: No suspicious change since the previous exams. Resumption of routine screening in August 2025 would now seem adequate. See text. Recommendation: 1: Routine screening mammogram Bilateral in August 2025 Return for Routine Follow-Up: Yes Assessment: ACR BI-RADS Category 2 - Benign. Ordered By: ELISA MORGAN Interpreted By: Sotero Garvin MD, 03/22/2025 1:21 PM Narrative 03/22/2025 1:37 PM [address]T [address] [place] [address] Examination: Digital left diagnostic mammogram with CAD. Clinical history: Follow-up of probably benign nodule. Comparison: 09/21/2024, 08/23/2024. Technique:CC, MLO, true lateral and spot compression CC and MLO left digital mammograms . The exam was interpreted with the use of a computer-aided detection (CAD) system. Additional 3-D Tomosynthesis images were acquired. Tissue density: The breast tissue contains scattered fibroglandular densities. Findings: There has been no suspicious change. The breast again demonstrates mixed fat and fibroglandular tissue. Benign-appearing calcification noted. The focal asymmetry inferiorly noted on 08/23/2024 is no longer apparent in the CC projection and substantially decreased in conspicuity on the MLO and true lateral views concordant with suspected cystic or fibrocystic nature on ultrasound and now considered benign. No suspicious mass, microcalcification or area of architectural distortion can be identified. Based on these findings, follow-up in August 2025 for resumption of screening would now seem adequate. These findings were discussed with the patient. us Elisa Morgan MD MAMMO Final Result from Last 3 Months Insurance [facility] [place] [phone] Advance Directives * Full Code (Latest Code Status on File) Date Activated Date Inactivated Comments 08/22/2021 2:07 PM 08/23/2021 5:49 PM Care Teams Wrapper Operator Relationship Specialty Start Date End Date Elisa Morgan MD [address] [place] [address] PCP - General INTERNAL MEDICINE 07/03/21
--- OUTSIDE RECORDS SUMMARY | 2025-06-17 11:40 | XMS_ITS | Encounter Summary ---
Author Organization [facility] Address [facility] [place] [address] Care Team Providers Care Medical Asst Name Role Phone Amol Carter MD Primary Care Provider [phone] Reason for Visit * Reason Comments Low Back Pain * Physical Therapy (Routine) - Authorized Specialty Diagnoses / Procedures Referred By Carson narayan Referred To Contact PHYSICAL THERAPY / [facility] Physical Therapy Diagnoses Sacrococcygeal disorders, not elsewhere classified Procedures Babs Latham MD [address] [phone] Phone: tel: fax: Torsten Green, PT [address] [place] [address] Phone: tel: fax: Referral ID Status Reason Start Date Expiration Date Visits Requested Visits Authorized [id number] Authorized Physical Therapy 03/23/2025 20 20 Encounter Details Date Type Department Care Team (Late st Contact Info) Description 06/16/2025 12:55 PM T Hospital Encounter [facility] [address] [place] [address] Walter Vargas, PT [address] [place] [address] Babs White MD [address] [phone] Sasha Hobson, FILING OR REGISTRY CLERK Low Back Pain Social History Tobacco Use Types Packs/Day Years Used Date Smoking Tobacco: Former Cigarettes Q uit: 2012 Smokeless Tobacco: Never Alcohol Use Standard Drinks/Week Comments Yes 0 (1 standard drink = 0.6 oz pur e alcohol) seldom Comments No Sex and Gender Information Value Date Recorded Sex Assigned at Female 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 Answer Date of Assessment Author Status No 08/22/2021 10:23 AM CDT Acti ve * Do you have serious difficulty walking or climbing stairs? Answer Date of Assessment Author Status Yes 08/22/2021 10:23 AM ALEXAT Yuki Maddox RN Active * Do you have difficulty dressing or bathing? Answer Date of Assessment Author Status No 08/22/2021 10:23 AM ALEXAT Yuki Maddox RN Active * Because of a physical, mental, or emotional condition, do you have difficulty doing errands alone such as visiting a doctor's office or shopping? Answer Date of Assessment Author Status No 08/22/2021 10:23 AM Yuki Griffith RN Active documented as of this encounter Mental Status * Because of a physical, mental, or emotional condition, do you have serious difficulty concentrating, remembering, or making decisions? Answer Entry Date Author Status No 08/22/2021 10:23 AM Yuki Griffith RN Active documented in this encounter Progress Notes * Sasha Hobson, FILING OR REGISTRY CLERK - 06/16/2025 1:00 PM CDT PHYSICAL THERAPY TREATMENT NOTE Time In: 1300 Time Out: 1354 Total Time: 54' Name: Ayse Lowe : 1955 Past Medical History[1] Past Surgical History[2] Subjective: Diagnosis: B SI joint pain, R>L Referring Physician: Babs White MD - pain management Onset Date: 5-6 weeks ago Treatment Day: 15 Total Approved Visits: 20 visits Therapy Plan of Care: 2x/week Return to MD: BONIFACIO Subjective Note: Pt states that she is feeling ok this afternoon and has no new complaints pre treatment. Location of Pain: R SI - R knee Pre-treatment Pain: 0-1/10 - 3-4/10 Post-treatment Pain: 1-2/10, fatigued more than pain. Restriction/Precaution: None Objective: Treatment Performed: Therapeutic Exercise - 43552 Minutes Performed: 15' Intervention: - Pt education and discussion - Standing hip 3-way RTB with slider 2 x 15 ea (B, 1 SPINNING AND WINDING SUPERVISOR) - Standing HR/TR 2 x 15 with 2 SPINNING AND WINDING SUPERVISOR H- LTR x10 rashida. H- BKFO x10 rashida. Added RTB H- RTB butterflies x 20 increased reps - Standing RTB rows with hip hinge during eccentric phase 2 x 10 H- seated 3-point lumbar flexion (central and over each foot) yellow medball x 15 (or 5 ea) Manual Therapy - 50387 Minutes Performed: 0' Intervention: - HL B traction/decompression H- R piriformis stretching/mobilizations - RLE LAD with mulligan belt - Yoga ball lumbar manual traction H- STM to R hip flexor Neuromuscular Reeducation - 44027 Minutes Performed: 15' Intervention: H- PPT 15 x 3 sec hold H- PPT w/ december 2 x 10 B H- PPT + DKTC 2 x 5 H- Bridges with ball between knees 2 x 10 H- Bekah. Hip abd 20 x 5 sec hold H- SL clamshells x 10 (B), reverse clamshells x 5 ea (B) (very hard on L side in R SL) H- Seated lumbar SB rolls L-R x 10 ea H- Seated lumbar flexion/RDLs with R foot on foams x 6 (BALANCE) - RBOS with VOR x1 2 x 30 horizontal - NBOS on firm EO with bar oppo reaches 2 x 10 - NBOS on foam EO 2 x 1 min - Split-stance on foam with bar taps 2 x 10 ea (B) - RBOS marches with 3# DB holds x 20 - // bar taps yellow medball 2 x 16 - Upward chops yellow medball 2 x 10 (B) on foam (added foam) - Red medball handoffs L And R with RBOS on foam 1 min x2 H- Fitterboard lat-lat c/ 2 SPINNING AND WINDING SUPERVISOR x 2 min Therapeutic Activities - 17081 Minutes Performed: 24' - Nustep lvl 3 x10 minutes - RTB walking fwd and rev in // bars x 4 laps - side stepping x3 laps RTB H- monster walks x3 laps RTB H- Lat weight-shifts into simulated falls or lat steps 2 x 5 (B), then fwd and rev 2 x 5 ea (B) (careful of R ankle) - Walking in // bars with 2-3 pauses between steps 2 x 1 lap - NBOS walking (attempting straight line walking x 2 laps in // bars - Lat step-overs of foam pad 2 x 8 - Lat steps to foam over small blue foam roll x 10 (B) Modalities Minutes Performed: -' Intervention: - MHP to lumbar spine in sitting Total Treatment Time: 54' Education Performed: Continued discussion around POC and the need to challenge balance system to improve reactions. ASSESSMENT: Note: Pt tolerated treatment well this date without complaint of increase in pain. Pt demonstrates improved stability throughout all balancing activities this date especially with NBOS. Pt continues to show progression towards her therapeutic goals. Will continue to progress as tolerated to improveBLE strength for functional mobility. PLAN: Plan for next visit: NuStep level 2-3; standing balance and strengthening in parallel bars as tolerated. 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 [2] Past Surgical History: Procedure Laterality Date SECTION EYE SURGERY Right TOTAL SHOULDER ARTHROPLASTY Right 08/22/2021 right reverse total shoulder arthroplasty using a DePuy delta extend 10mm stem with a size 1 eccentric body and a 38 mm glenosphere with a +3 polyethylene spacer TUBAL LIGATION documented in this encounter Plan of Treatment Upcoming Encounters Date Type Department Care Team (Late st Contact Info) Description 06/20/2025 1:45 PM CDT Appointment [facility] [address] [place] [address] Walter Vargas, PT [address] [place] [address] Babs White MD [address] [phone] Sasha Hobson PTA 06/23/2025 7:00 AM CDT Appointment [facility] [address] [place] [address] Walter Vargas, PT [address] [place] [address] Babs White MD [address] [phone] Sasha Hobson PTA documented as of this encounter Visit Diagnoses Diagnosis Low back pain- Primary Lumbago documented in this encounter Care Teams Medical Asst Relationship Specialty Start Date End Date Amol Carter MD [address] [place] [id number] PCP - General INTERNAL MEDICINE 07/03/21 documented as of this encounter
--- OUTSIDE RECORDS SUMMARY | 2025-06-17 11:40 | XMS_ITS | Encounter Summary ---
Author Organization [facility] Address [facility] [place] [address] Care Team Providers Care Counter Maker Name Role Phone Amol Carter MD Primary Care Provider [phone] Encounter Details Date Type Department Care Team (Latest Contact Info) Description 06/16/2025 Travel Social History Tobacco Use Types Packs/Day Years Used Date Smoking Tobacco: Former Cigarettes Q uit: 2012 Smokeless Tobacco: Never Alcohol Use Standard Drinks/Week Comments Yes 0 (1 standard drink = 0.6 oz pur e alcohol) seldom Comments No Sex and Gender Information Value Date Recorded Sex Assigned at Female 12/02/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 Legal Sex Female 11:58 AM CDT Gender [...] 08/22/2021 10:23 AM Yuki Griffith RN Active * Because of a physical, [...] Date Author Status No 08/22/2021 10:23 AM CDT uYki Maddox RN Active documented in this encounter Plan of Treatment Upcoming Encounters Date Type Department Care Team (Late st Contact Info) Description 06/20/2025 1:45 PM CDT Appointment [facility] [address] [place] [address] Walter Vargas, PT [address] [place] [address] Babs White MD [address] [phone] Sasha Hobson PTA 06/23/2025 7:00 AM CDT Appointment [facility] [address] [place] [address] Walter Vargas, PT [address] [place] [address] Babs White MD [address] [phone] Sasha Hobson PTA documented as of this encounter Visit Diagnoses Not on filedocumented in this encounter Care Teams Counter Maker Relationship Specialty Start Date End Date Amol Carter MD [address] [place] [phone] PCP - General INTERNAL MEDICINE 07/03/21 documented as of this encounter
== END 2025-06-17 11:38 | disposition home or self-care (01) ==
LOC: CHSIMG 11:38
PROVIDERS: PCP Internal Medicine; Visit Provider Neurological Surgery
DX: R26.89 Other abnormalities of gait and mobility (principal)
CPT/HCPCS: 72141

== ENCOUNTER 2025-09-04 08:38 | Outpatient (CLI) | payer MEDICARE, MEDICAID, SELFPAY ==
--- NOTE | 2025-09-04 10:15 | EST_ITS ---
Patient Info Name: Ayse Lowe Age: 70 years : 1955 Gender: Female Ht: 59 in Wt: 224 lbs BSA: 2.12 m2 HR: 50 bpm BP: 150 / 78 mmHg Heart Rhythm: Bradycardia Technical Quality: Good Exam Date: 09/04/2025 10:14 AM Patient Status: O Admit Date: 09/04/2025 Exam Type: CA stress cindy w NM A regadenoson stress test was performed. Staff Referring Physician: Adryan Pritchett DO Attending Provider: Adryan Pritchett DO Summary 1. 1. Negative lexiscan stress test for ischemic ST changes by ECG criteria. 2. 2. Stable hemodynamics throughout the test. 3. 3. Nuclear scan to follow and will be reported separately. Please correlate with it. History/Risk Factors Hypertension: Yes Dyslipidemia: Yes Obesity: Yes Protocol: LEXISCAN Stress ECG Details Stage: REST Duration (min): 1 min : 0 sec HR (bpm): 53 SBP (mmHg): 150 DBP (mmHg): 78 Stage: REST Duration (min): 1 min : 18 sec HR (bpm): 56 SBP (mmHg): 150 DBP (mmHg): 78 Stage: REST Duration (min): 1 min : 41 sec HR (bpm): 56 SBP (mmHg): 150 DBP (mmHg): 78 Stage: REST Duration (min): 2 min : 14 sec HR (bpm): 50 SBP (mmHg): 150 DBP (mmHg): 78 Stage: REST Duration (min): 2 min : 27 sec HR (bpm): 49 SBP (mmHg): 150 DBP (mmHg): 78 Stage: REST Duration (min): 4 min : 33 sec HR (bpm): 56 SBP (mmHg): 150 DBP (mmHg): 78 Stage: STAGE 1 Duration (min): 0 min : 18 sec HR (bpm): 50 SBP (mmHg): 150 DBP (mmHg): 78 Stage: RECOVERY Duration (min): 0 min : 41 sec HR (bpm): 69 SBP (mmHg): 150 DBP (mmHg): 78 Stage: RECOVERY Duration (min): 1 min : 41 sec HR (bpm): 81 SBP (mmHg): 150 DBP (mmHg): 78 Stage: RECOVERY Duration (min): 2 min : 41 sec HR (bpm): 74 SBP (mmHg): 132 DBP (mmHg): 69 Stage: RECOVERY Duration (min): 3 min : 41 sec HR (bpm): 69 SBP (mmHg): 129 DBP (mmHg): 62 Stage: RECOVERY Duration (min): 4 min : 41 sec HR (bpm): 69 SBP (mmHg): 125 DBP (mmHg): 64 Stage: RECOVERY Duration (min): 5 min : 41 sec HR (bpm): 67 SBP (mmHg): 125 DBP (mmHg): 64 Stage: RECOVERY Duration (min): 6 min : 17 sec HR (bpm): 63 SBP (mmHg): 128 DBP (mmHg): 65 Rest HR: 56 bpm Peak HR: 85 bpm Rest Sys BP: 150 mmHg Peak Sys BP: 132 mmHg Max Pred HR: 151 bpm % Max Pred HR: 56 % Target HR: 128 bpm Max RPP: 11,220 bpm*mmHg BP Response: Normal blood pressure response Termination Reason: Completed Protocol Cardiac Symptoms: None Total Time: 0 min : 18 sec Rest Gaston BP: 78 mmHg Peak Gaston BP: 69 mmHg Total Dose: 0.4 mg Resting ECG Sinus bradycardia, delayed precordial R/S transition. Stress ECG No abnormal ST/T wave changes. Arrhythmias None. Report Signatures
--- NOTE | 2025-09-04 13:00 | WPDCARIOSTRE ---
Nuclear Stress Test INDICATIONS Indications: Chest pain PROCEDURE Procedure Performed: Myocardial Perf Spect-Multi Procedure: Patient underwent a lexiscan stress test and immediately was injected with 31.7 mCi of cardiolyte. Multiple tomographic images were obtained. These are of good quality. No perfusion defect with stress imaging. A separate resing images were obtained after patient was injected with 10.8 mCi of cardiolyte. Multiple tomographic images were obtained. These are of good quality. No perfusion defect with rest imaging. CONCLUSION Conclusion: 1. Normal myocardial perfusion imaging demonstrating no perfusion defect with stress or rest imaging. 2. No evidence of reversible ischemia. 3. Left ventriculogram demonstrates normal measured ejection fraction of 65% with no wall motion abnormalities. 4. TID score 1.0 is not elevated.
== END 2025-09-04 08:39 | disposition home or self-care (01) ==
LOC: CHSIMG 08:39
PROVIDERS: PCP Internal Medicine; Visit Provider Internal Medicine Cardiovascular Disease
DX: R07.9 Chest pain, unspecified (principal)
CPT/HCPCS: 78452; 93017; A9502; J2785

== ENCOUNTER 2025-09-19 15:24 | Outpatient (CLI) | payer MEDICARE, MEDICAID, SELFPAY ==
--- NOTE | 2025-09-19 15:27 | ECHO_ITS ---
Patient Info Name: Ayse Lowe Age: 70 years : 1955 Gender: Female Ht: 59 in Wt: 222 lbs BSA: 2.11 m2 HR: 61 bpm Technical Quality: Fair Exam Date: 09/19/2025 3:28 PM Patient Status: O Admit Date: 09/19/2025 BP unable to obtain due to: Other Exam Type: CA echo doppler color flow Complete two-dimensional, color flow and Doppler transthoracic echocardiogram is performed. [place] Operator: Shani Gray Attending Provider: Adryan Pritchett DO Summary 1. Complete two-dimensional, color flow and Doppler transthoracic echocardiogram is performed. 2. Left ventricular chamber dimension is normal. 3. Left ventricular systolic function is normal, estimated at 60-65. 4. There is mild concentric increased left ventricular wall thickness. 5. The left ventricular diastolic function is normal. 6. E/e' 9 is minimally elevated. 7. There is mild aortic valve sclerosis. 8. The mitral valve has a mildly calcified annulus. 9. There is trace tricuspid valve regurgitation. History/Risk Factors Hypertension: Yes Dyslipidemia: Yes Obesity: Yes Left Ventricle E/e' 9 is minimally elevated. Left ventricular chamber dimension is normal. Left ventricular systolic function is normal, estimated at 60-65. There is mild concentric increased left ventricular wall thickness. The left ventricular diastolic function is normal. Right Ventricle Right ventricular chamber dimension is normal. Right ventricular systolic function is normal. Left Atria Left atrial chamber dimension is normal. Right Atria Right atrial chamber dimension is normal. Aortic Valve The aortic valve is trileaflet. There is mild aortic valve sclerosis. There is no aortic valve stenosis. There is no aortic valve regurgitation. Pulmonic Valve There is no pulmonic regurgitation. Mitral Valve The mitral valve has a mildly calcified annulus. There is no mitral valve stenosis. There is no mitral valve regurgitation. Tricuspid Valve There is trace tricuspid valve regurgitation. RVSP is not measured due to an inadequate TR jet. Pericardium/Pleural There is no pericardial effusion. Inferior Vena Cava Normal inferior vena cava with >50% collapse upon inspiration consistent with normal right atrial pressure, 5 mmHg. Aorta The aortic root size at the sinus of Valsalva is normal. Left Ventricular Outflow Tract Name Value Normal LVOT 2D LVOT Diameter 2.0 cm LVOT Doppler LVOT Peak Velocity 144 cm/s LVOT Peak Gradient 8 mmHg LVOT Mean Gradient 5 mmHg LVOT VTI 37 cm LVOT VTI/AV VTI Ratio 0.7 LVOT Stroke Volume 111 ml LVOT CO 6.6 l/min LVOT CI 3.1 l/min/m2 Pulmonic Valve Name Value Normal RVOT Doppler RVOT Peak Velocity 98 cm/s RVOT Peak Gradient 4 mmHg PV Doppler PV Peak Velocity 121 cm/s PV Peak Gradient 6 mmHg Mitral Valve Name Value Normal MV Diastolic Function MV E Peak Velocity 98 cm/s MV A Peak Velocity 86 cm/s MV E/A 1.1 MV Decel Time (PW) 251 ms MV Annular TDI MV E/e' (Septal) 11.1 MV E/e' (Lateral) 8.4 MV E/e' (Average) 9.7 Tricuspid Valve Name Value Normal Estimated PAP/RSVP RA Pressure 5 mmHg <=5 Aortic Valve Name Value Normal AV Doppler AV Peak Velocity 218 cm/s AV Peak Gradient 19 mmHg AV Mean Gradient 9 mmHg AV VTI 50 cm AV Area (Cont Eq VTI) 2.2 cm2 >=3.0 AV Area (Cont Eq Ayo) 2.0 cm2 AV DI (Ayo) 0.66 AV Regurgitation 2D LVOT Area 3.0 cm2 Ventricles Name Value Normal LV Dimensions 2D/MM IVS Diastolic Thickness (2D) 1.2 cm 0.6-1.0 LVID Diastole (2D) 3.8 cm 3.8-5.2 LVIW Diastolic Thickness (2D) 1.3 cm 0.6-0.9 LVID Systole (2D) 2.4 cm 2.2-3.5 LVOT Diameter 2.0 cm LV Mass (2D Cubed) 156.33 g 67.00-162.00 LV Mass Index (2D Cubed) 74 g/m2 43-95 Relative Wall Thickness (2D) 0.66 <=0.42 LV Fractional Shortening/Ejection Fraction 2D/MM LV Fractional Shortening (2D) 37 % 27-45 LV EF (2D Teichholz) 68 % LV Diastolic Volume (4C MOD) 79 ml LV EF (4C MOD) 57 % LV Diastolic Volume (2C MOD) 85 ml LV EF (2C MOD) 68 % LV Diastolic Volume (BP MOD) 85 ml 46-106 LV Diastolic Volume Index (BP MOD) 40 ml/m2 29-61 LV Systolic Volume (BP MOD) 32 ml 14-42 LV Systolic Volume Index (BP MOD) 15 ml/m2 8-24 LV EF (BP MOD) 62 % 54-74 LV Diastolic Length (4C) 8.2 cm LV Systolic Length (4C) 6.8 cm LV Stroke Volume (4C MOD) 46 ml Atria Name Value Normal LA Dimensions LA Volume (4C A-L) 27 ml LA Volume (BP A-L) 30 ml RA Dimensions RA Systolic Major [place] Length (4C) 4.7 cm 2.2-2.8 RA Area (4C) 14.5 cm2 <=18.0 Report Signatures
== END 2025-09-19 15:25 | disposition home or self-care (01) ==
PROVIDERS: PCP Internal Medicine; Visit Provider Internal Medicine Cardiovascular Disease
DX: R01.1 Cardiac murmur, unspecified (principal); I35.8 Other nonrheumatic aortic valve disorders
CPT/HCPCS: 93306